=== PATIENT | male | born 1975 | race Caucasian/White ===

== ENCOUNTER → 2016-03-28 | Outpatient (CLI) | payer MEDICARE ==
[~2016-03-28] MED LIST: /DULO30CA; AMIT10TA2; FLEXERIL PO; LIDO5DIS EX; NUCYNTA; RELPAX; SOMA350T; SOMA350T OR; SOMA350T PO; TIZA4TAB; TRAM50TA2 OR; VICODIN; VOLT1GEL2 TD; [UNRECOGNIZED DRUG - CODE] TD
--- NOTE | 2016-03-31 00:44 | ECWPNPC ---
PATIENT NAME: KATHRIN DELGADO : 1975 GENDER: MALE VISIT DATE: 03/28/2016 DISCHARGE DATE: 03/28/16 0939 VISIT LOCKED DATE TIME: PHYSICIAN: MARTY BLAND RESOURCE: MARTY BLAND REASON FOR APPOINTMENT 1. LBP HISTORY OF PRESENT ILLNESS HISTORY OF PRESENT ILLNESS: PAIN THE PATIENT DESCRIBES THE PAIN... FALL RISK SCREENING: SCREENING :NO FALLS IN THE PAST YEAR TODAY'S VISIT: NOTES: RATES PAIN TODAY 3-4/10 DESCRIBES THE PAIN CONSTANT, ACHING SORE. IS HAVING INCREASED NECK PAIN WITH RADIATION TO ARMS. IS WAKING UP IN THE MORNING WITH NUMBNESS IN ARMS. HAS HAPPENED 3 TIMES IN LAST MONTH. PERSISTANT TINGLING NOTED IN LEFT FOOT. BALANCE IS FAIRLY GOOD. TRAMADOL IS VERY HELPFUL I MANAGING NEURVE PAIN.. CURRENT MEDICATIONS TAKING LEVOTHYROXINE SODIUM 25 MCG TABLET 1 TABLET ORALLY ONCE A DAY TAKING TRAMADOL HCL 50 MG TABLET 1 TABLET ORALLY EVERY 6 HRS PRN PAIN MDD=4 MEDICATION LIST REVIEWED AND RECONCILED WITH THE PATIENT PAST MEDICAL HISTORY HYPOTHYROIDISM,DISC DISEASE LOW BACK ALLERGIES CODEINE PHOSPHATE (FOR ALLERGIES USE ONLY): NAUSEA/VOMITING NEURONTIN: CHEST PAIN SOCIAL HISTORY GENERAL: TOBACCO USE ARE YOU A:CURRENT SMOKER HOW MANY CIGARETTES A DAY DO YOU SMOKE?11-20 HOW SOON AFTER YOU WAKE UP DO YOU SMOKE YOUR FIRST CIGARETTE?6-30 MIN HOW OFTEN DO YOU SMOKE CIGARETTES?EVERY DAY PATIENT COUNSELED ON THE DANGERS OF TOBACCO USE AND URGED TO QUIT: COUNCELLED ON THE IMPORTANCE OF QUITTING ARE YOU INTERESTED IN QUITTING?NOT READY TO QUIT LEARNING BARRIERS / SPECIAL NEEDS ORIENTED TO PLAN OF CARE: PATIENT, PAIN MANAGEMENT PATIENT, ORIENTED TO PLAN OF CARE: PATIENT, PAIN MANAGEMENT PATIENT. NEW PATIENT PAIN DIARY TODAY'S VISITNOTES FROM 0-10, WHAT LEVEL IS YOUR PAIN TODAY?0 PAIN CLINIC PFS, CLERGY, PUBLIC HEALTH REFERRALS PFS REFERRAL NEEDED?NO CLERGY REFERRAL NEEDED?NO PUBLIC HEALTH REFERRAL NEEDED?NO WAS THE PROVIDER NOTIFIED OF ANY PERTINENT INFO?NO PFS REFERRAL NEEDED?NO CLERGY REFERRAL NEEDED?NO PUBLIC HEALTH REFERRAL NEEDED?NO WAS THE PROVIDER NOTIFIED OF ANY PERTINENT INFO?NO REVIEW OF SYSTEMS CONSTITUTIONAL: ANY CHANGE IN YOUR MEDICAL CONDITION? NO . CHILLS NO . FEVER NO . INFECTION: DO YOU HAVE NEW INFECTIONS? NO . DO YOU HAVE HISTORY OF MRSA? NO . MUSCULOSKELETAL: ANY NEW PATTERNS OF PAIN OR NUMBNESS? YES PAIN IN NECK AND MORE NUMBNESS IN ARMS . GASTROENTEROLOGY: ANY NEW CHANGE IN BOWEL CONTROL? NO OCCASIONAL CONSTIPATION SECONDARY TO MEDS . GENITOURINARY: ANY NEW CHANGE IN BLADDER CONTROL? NO . IS THERE A CHANCE YOU COULD BE ? NO . HEMATOLOGY/LYMPH: DO YOU TAKE ANY BLOOD THINNERS? (FOR EXAMPLE- COUMADIN, PLAVIX, AGGRENOX, PLATEL, PRADAXA, OR XARELTO) NO . WHEN WAS YOUR LAST DOSE? DATE: TIME: . NEUROLOGY: HAVE YOU FALLEN IN THE PAST 6 MONTHS? NO . ANY NEW EXTREMITY NUMBNESS OR WEAKNESS? NO . CARDIOLOGY: DO YOU HAVE A PACEMAKER OR DEFIBRILLATOR? NO . RESPIRATORY: HAVE YOU BEEN SICK IN THE PAST WEEK? NO . FEVER NO . FLU LIKE SYMPTOMS? NO . COUGH NO . INTEGUMENTARY: DO YOU HAVE ANY RASHES OR OPEN SORES? NO . ALLERGIC/IMMUNO: ARE YOU ALLERGIC TO SHELLFISH OR IV DYE? NO . ANY NEW ALLERGIES? NO . PSYCHIATRIC: DO YOU HAVE THOUGHTS OF HURTING YOURSELF OR SOMEONE ELSE? NO . ARE YOU ABUSED, NEGLECTED, OR IN AN UNSAFE ENVIRONMENT? NO . ENDOCRINOLOGY: ARE YOU DIABETIC? NO . OTHER: DO YOU NEED ANY PRESCRIPTIONS? NO . IF YES, PLEASE LIST: ____ . ANY NEW PROBLEMS WITH YOUR MEDICATIONS? NO . WHEN DID YOU LAST EAT? ____ . WHEN DID YOU LAST DRINK? ____ . WHAT DID YOU LAST DRINK? ____ . NAME OF PERSON DRIVING YOU HOME? ____ . DO YOU HAVE ANY OTHER QUESTIONS OR CONCERNS NO . REVIEWED BY: PROVIDER: MARTY ALBA . VITAL SIGNS WT 184.2 LBS, HT 68 IN, BMI 28.00 INDEX, BP 118/65 MM HG, HR 64 /MIN, RR 16 /MIN, TEMP 96.0 F, OXYGEN SAT % 98%, REVIEWED BY: AD. EXAMINATION GENERAL EXAMINATION: PSYCHALERT , ORIENTED X 3 , APPROPRIATE MOOD AND AFFECT . LUNGS:CLEAR TO AUSCULTATION BILATERALLY. HEART:HEART RATE REGULAR. MUSCULOSKELETAL:MUSCLE STRENGTH TESTING 5/5 BILATERAL IN LOWER EXTREMITIES. SOME STIFFNESS IN FLEXION/EXTENSION IN LEFT ANKLE. TENDERNESS WITH PALPATION OVER LUMBAR SACRAL AXIS, LEFT GREATER THAN RIGHT. ABLE TO RISE TO STANDING POSITION - GAIT WITH SLIGHT LEFT LEG LIMP. AUDIBLE CREPITUS LEFT SHOULDER WITH ROM. , TRIGGER POINTS:, ELICITED WITH PALPATION OVER CERVICAL SPINOUS PROCESSES AND ACROSS THE TRAPEZIUS MUSCLES BILATERALLY. RESTRICTION OF ROM IS NOTED. . ASSESSMENTS LUMBAR POST-LAMINECTOMY SYNDROME - M96.1 (PRIMARY) CERVICAL RADICULOPATHY - M54.12 LUMBAR RADICULOPATHY - M54.16 TREATMENT LUMBAR POST-LAMINECTOMY SYNDROME NOTES: CONSIDER MRI OD CERVICAL SPINE. CONTINUE CURRENT MEDS. USE ICY HOT/BENGAY TO NECK MUSCLES., # 226 TOBACCO USE SCREENING/INTERVENTION: PATIENT CURRENTLY USED TOBACCO. WAS OFFERED SMOKING CESSATION FOR GUIDANCE IN QUITTING THROUGH THE [facility] QUITS PROGRAM AND THE [facility] CESSATION PROGRAM. PROCEDURE CODES FA211 ESTABILISHED PATIENT [facility] FACILITY CHARGE G8783 BP SCR PRFRM RCMDD DEFIND SCR INTVL G8730 PAIN ASSESS POS TOOL F/U PLAN DOC 3016F PT SCRND UNHLTHY OH USE 1124F ACP DISCUSS-NO DSCNMKR DOCD 0518F FALL PLAN OF CARE DOCD G8427 DOC MEDS VERIFIED W/PT OR RE G8420 BMI<30 AND >=22 CALC & DOCU 4004F PT TOBACCO SCREEN RCVD TLK DISPOSITION & COMMUNICATION FOLLOW UP 3 MONTHS ELECTRONICALLY SIGNED BY MARVA ARIZMENDI ON 03/30/2016 AT 12:54 PM EST DISCLAIMER : THIS IS A VISIT SUMMARY EXTRACTED FROM THE [employer] CHART. IT IS NOT A COPY OF THE [employer] PROGRESS NOTE. MTDD
== END ==
LOC: M PAIN 09:00
PROVIDERS: ATTEND Nurse Practitioner Family
DX: Z09 Encounter for follow-up examination after completed treatment for conditions other than malignant neoplasm (principal); G89.29 Other chronic pain; M96.1 Postlaminectomy syndrome, not elsewhere classified; M54.12 Radiculopathy, cervical region; M54.16 Radiculopathy, lumbar region; E03.9 Hypothyroidism, unspecified; F17.210 Nicotine dependence, cigarettes, uncomplicated; Z88.6 Allergy status to analgesic agent; Z88.8 Allergy status to other drugs, medicaments and biological substances; Z79.891 Long term (current) use of opiate analgesic; Z79.899 Other long term (current) drug therapy

== ENCOUNTER → 2016-06-26 | Outpatient (CLI) | payer MEDICARE ==
--- NOTE | 2016-06-30 01:13 | ECWPNPC ---
PATIENT NAME: KATHRNI DELGADO : 1975 GENDER: MALE VISIT DATE: 06/26/2016 DISCHARGE DATE: 06/26/16 0916 VISIT LOCKED DATE TIME: PHYSICIAN: MARTY BLAND RESOURCE: MARTY BLAND REASON FOR APPOINTMENT 1. LBP HISTORY OF PRESENT ILLNESS HISTORY OF PRESENT ILLNESS: PAIN THE PATIENT DESCRIBES THE PAIN... FALL RISK SCREENING: SCREENING :NO FALLS IN THE PAST YEAR TODAY'S VISIT: NOTES: RATES PAIN TODAY 3/10. NOTES PAIN IS CONSTANT, ACHING, AND SORE. HAD REENT ISSUE WITH HEADACHE AND WAS FOUND TO BE SIGNIFICANTLY HYPOTHYROID DESPITE TAKING HIS REPLACEMENT MEDS REGULARLY. HAS HAD NO FALLS.LEFT KNEE AND LEG DOING WELL WIH OCCASIONAL DISCOMFORT IN FOOT.. CURRENT MEDICATIONS TAKING LEVOTHYROXINE SODIUM 125 MCG TABLET 1 TABLET ORALLY ONCE A DAY TAKING TRAMADOL HCL 50 MG TABLET 1 TABLET ORALLY EVERY 6 HRS PRN PAIN MDD=4 MEDICATION LIST REVIEWED AND RECONCILED WITH THE PATIENT PAST MEDICAL HISTORY HYPOTHYROIDISM,DISC DISEASE LOW BACK ALLERGIES CODEINE PHOSPHATE (FOR ALLERGIES USE ONLY): NAUSEA/VOMITING NEURONTIN: CHEST PAIN SOCIAL HISTORY GENERAL: TOBACCO USE ARE YOU A:CURRENT SMOKER HOW MANY CIGARETTES A DAY DO YOU SMOKE?11-20 HOW SOON AFTER YOU WAKE UP DO YOU SMOKE YOUR FIRST CIGARETTE?6-30 MIN HOW OFTEN DO YOU SMOKE CIGARETTES?EVERY DAY PATIENT COUNSELED ON THE DANGERS OF TOBACCO USE AND URGED TO QUIT:06/26/2016 COUNCELLED ON THE IMPORTANCE OF QUITTING ARE YOU INTERESTED IN QUITTING?THINKING ABOUT QUITTING CUTTING DOWN, SOMEDAYS ARE BETTER THAN OTHERS PREVIOUS QUIT ATTEMPTS?YES, WITHIN THE LAST 6 MONTHS. COUNSELED THE PATIENT ON SMOKING CESSATION, EDUCATION [id number]/22/2017 LEARNING BARRIERS / SPECIAL NEEDS ORIENTED TO PLAN OF CARE: PATIENT, PAIN MANAGEMENT PATIENT, ORIENTED TO PLAN OF CARE: PATIENT, PAIN MANAGEMENT PATIENT. NEW PATIENT PAIN DIARY TODAY'S VISITNOTES FROM 0-10, WHAT LEVEL IS YOUR PAIN TODAY?0 PAIN CLINIC PFS, CLERGY, PUBLIC HEALTH REFERRALS PFS REFERRAL NEEDED?NO CLERGY REFERRAL NEEDED?NO PUBLIC HEALTH REFERRAL NEEDED?NO WAS THE PROVIDER NOTIFIED OF ANY PERTINENT INFO?NO PFS REFERRAL NEEDED?NO CLERGY REFERRAL NEEDED?NO PUBLIC HEALTH REFERRAL NEEDED?NO WAS THE PROVIDER NOTIFIED OF ANY PERTINENT INFO?NO REVIEW OF SYSTEMS CONSTITUTIONAL: ANY CHANGE IN YOUR MEDICAL CONDITION? NO . CHILLS NO . FEVER NO . INFECTION: DO YOU HAVE NEW INFECTIONS? NO . DO YOU HAVE HISTORY OF MRSA? NO . MUSCULOSKELETAL: ANY NEW PATTERNS OF PAIN OR NUMBNESS? NO . GASTROENTEROLOGY: ANY NEW CHANGE IN BOWEL CONTROL? NO . GENITOURINARY: ANY NEW CHANGE IN BLADDER CONTROL? NO . IS THERE A CHANCE YOU COULD BE ? NO . HEMATOLOGY/LYMPH: DO YOU TAKE ANY BLOOD THINNERS? (FOR EXAMPLE- COUMADIN, PLAVIX, AGGRENOX, PLATEL, PRADAXA, OR XARELTO) NO . WHEN WAS YOUR LAST DOSE? DATE: TIME: . NEUROLOGY: HAVE YOU FALLEN IN THE PAST 6 MONTHS? NO . ANY NEW EXTREMITY NUMBNESS OR WEAKNESS? NO . CARDIOLOGY: DO YOU HAVE A PACEMAKER OR DEFIBRILLATOR? NO . RESPIRATORY: HAVE YOU BEEN SICK IN THE PAST WEEK? NO . FEVER NO . FLU LIKE SYMPTOMS? NO . DO YOU USE ANY TYPE OF TOBACCO (SMOKE, SMOKELESS, CHEW)? YES - TO START MED FOR SMOKING CESSATION . COUGH NO . INTEGUMENTARY: DO YOU HAVE ANY RASHES OR OPEN SORES? NO . ALLERGIC/IMMUNO: ARE YOU ALLERGIC TO SHELLFISH OR IV DYE? NO . ANY NEW ALLERGIES? NO . PSYCHIATRIC: DO YOU HAVE THOUGHTS OF HURTING YOURSELF OR SOMEONE ELSE? NO . ARE YOU ABUSED, NEGLECTED, OR IN AN UNSAFE ENVIRONMENT? NO . ENDOCRINOLOGY: ARE YOU DIABETIC? NO . OTHER: DO YOU NEED ANY PRESCRIPTIONS? NO . IF YES, PLEASE LIST: ____ . ANY NEW PROBLEMS WITH YOUR MEDICATIONS? NO . WHEN DID YOU LAST EAT? ____ . WHEN DID YOU LAST DRINK? ____ . WHAT DID YOU LAST DRINK? ____ . NAME OF PERSON DRIVING YOU HOME? ____ . DO YOU HAVE ANY OTHER QUESTIONS OR CONCERNS NO . REVIEWED BY: PROVIDER: MARTY BLAND BEARINGIZER . VITAL SIGNS WT 184.2 LBS, HT 68 IN, BMI 28.00 INDEX, BP 126/65 MM HG, HR 64 /MIN, RR 16 /MIN, TEMP 98.7 F, OXYGEN SAT % 97, NA INITIALS MP, REVIEWED BY: AD. EXAMINATION GENERAL EXAMINATION: PSYCHALERT , ORIENTED X 3 , APPROPRIATE MOOD AND AFFECT . LUNGS:CLEAR TO AUSCULTATION BILATERALLY. HEART:HEART RATE REGULAR. MUSCULOSKELETAL:MUSCLE STRENGTH TESTING 5/5 BILATERAL IN LOWER EXTREMITIES. MINIMAL STIFFNESS IN FLEXION/EXTENSION IN LEFT ANKLE. MINIMAL TENDERNESS WITH PALPATION OVER LUMBAR SACRAL AXIS, LEFT GREATER THAN RIGHT. ABLE TO RISE TO STANDING POSITION - POSTURE UPRIGHT, GAIT NON ANTALGIC.TRIGGER POINTS:, ELICITED WITH PALPATION OVER CERVICAL SPINOUS PROCESSES AND ACROSS THE TRAPEZIUS MUSCLES BILATERALLY. RESTRICTION OF ROM IS NOTED. . ASSESSMENTS LUMBAR POST-LAMINECTOMY SYNDROME - M96.1 (PRIMARY) CERVICAL RADICULOPATHY - M54.12 LUMBAR RADICULOPATHY - M54.16 TREATMENT LUMBAR POST-LAMINECTOMY SYNDROME NOTES: CONTINUE EXERCISES, WALKING AND STRETCHES. CONTINE CURRENT MEDS. CALL WHEN MEDS DUE. PROCEDURE CODES FA211 ESTABILISHED PATIENT [facility] FACILITY CHARGE G8730 PAIN ASSESS POS TOOL F/U PLAN DOC G8427 DOC MEDS VERIFIED W/PT OR RE DISPOSITION & COMMUNICATION FOLLOW UP 3 MONTHS ELECTRONICALLY SIGNED BY MARVA ARIZMENDI ON 06/26/2016 AT 02:14 PM EDT DISCLAIMER : THIS IS A VISIT SUMMARY EXTRACTED FROM THE [employer] CHART. IT IS NOT A COPY OF THE [employer] PROGRESS NOTE. BRIDGER
== END ==
LOC: M PAIN 08:40
PROVIDERS: ATTEND Nurse Practitioner Family
DX: M96.1 Postlaminectomy syndrome, not elsewhere classified (principal); M54.12 Radiculopathy, cervical region; M54.16 Radiculopathy, lumbar region; Z79.891 Long term (current) use of opiate analgesic; Z79.899 Other long term (current) drug therapy; E03.9 Hypothyroidism, unspecified; F17.210 Nicotine dependence, cigarettes, uncomplicated

== ENCOUNTER → 2016-10-04 | Outpatient (CLI) | payer MEDICARE ==
--- NOTE | 2016-10-05 23:29 | ECWPNPC ---
PATIENT NAME: KATHRIN DELGADO : 1975 GENDER: MALE VISIT DATE: 10/04/2016 DISCHARGE DATE: 10/04/16 1037 VISIT LOCKED DATE TIME: PHYSICIAN: MARTY BLAND RESOURCE: MARTY BLAND REASON FOR APPOINTMENT 1. LBP HISTORY OF PRESENT ILLNESS HISTORY OF PRESENT ILLNESS: PAIN THE PATIENT DESCRIBES THE PAIN... FALL RISK SCREENING: SCREENING :NO FALLS IN THE PAST YEAR TODAY'S VISIT: NOTES: RATES PAIN LEVEL TODAY 3-4/10. DESCRIBES PAINA S CNSTANT, ACHING AND SORE.NOTES PAINA S BEING AT CENTER LOW BACK, LOW MID BACK AND AT BASE OF NECK. HAD ONSET OF NEW PAIN AT MID BACK AT END OF JULY. NOTES THINGS ARE SLOWLY IMPROVING. NOTES HE HAS LIMITED MOBILITY. WAS IN ER LAST WEEK WITH SEVERE HEADACHE - HAD IV FLUIDS AND WAS FELT TO BE DEHYDRATED. CURRENT MEDICATIONS TAKING LEVOTHYROXINE SODIUM 125 MCG TABLET 1 TABLET ORALLY ONCE A DAY TAKING TRAMADOL HCL 50 MG TABLET 1 TABLET ORALLY EVERY 6 HRS PRN PAIN MDD=4 MEDICATION LIST REVIEWED AND RECONCILED WITH THE PATIENT PAST MEDICAL HISTORY HYPOTHYROIDISM,DISC DISEASE LOW BACK ALLERGIES CODEINE PHOSPHATE (FOR ALLERGIES USE ONLY): NAUSEA/VOMITING NEURONTIN: CHEST PAIN SURGICAL HISTORY LUMBAR DISCECTOMY 2004 LUMBAR FUSION 2011 SOCIAL HISTORY GENERAL: TOBACCO USE ARE YOU A:CURRENT SMOKER HOW MANY CIGARETTES A DAY DO YOU SMOKE?11-20 HOW SOON AFTER YOU WAKE UP DO YOU SMOKE YOUR FIRST CIGARETTE?6-30 MIN HOW OFTEN DO YOU SMOKE CIGARETTES?EVERY DAY PATIENT COUNSELED ON THE DANGERS OF TOBACCO USE AND URGED TO QUIT:06/26/2016 COUNCELLED ON THE IMPORTANCE OF QUITTING ARE YOU INTERESTED IN QUITTING?THINKING ABOUT QUITTING CUTTING DOWN, SOMEDAYS ARE BETTER THAN OTHERS PREVIOUS QUIT ATTEMPTS?YES, WITHIN THE LAST 6 MONTHS. COUNSELED THE PATIENT ON SMOKING CESSATION, EDUCATION [id number]/22/2017 LEARNING BARRIERS / SPECIAL NEEDS ORIENTED TO PLAN OF CARE: PATIENT, PAIN MANAGEMENT PATIENT, ORIENTED TO PLAN OF CARE: PATIENT, PAIN MANAGEMENT PATIENT. NEW PATIENT PAIN DIARY TODAY'S VISITNOTES FROM 0-10, WHAT LEVEL IS YOUR PAIN TODAY?0 PAIN CLINIC PFS, CLERGY, PUBLIC HEALTH REFERRALS PFS REFERRAL NEEDED?NO CLERGY REFERRAL NEEDED?NO PUBLIC HEALTH REFERRAL NEEDED?NO WAS THE PROVIDER NOTIFIED OF ANY PERTINENT INFO?NO PFS REFERRAL NEEDED?NO CLERGY REFERRAL NEEDED?NO PUBLIC HEALTH REFERRAL NEEDED?NO WAS THE PROVIDER NOTIFIED OF ANY PERTINENT INFO?NO HOSPITALIZATION/MAJOR DIAGNOSTIC PROCEDURE SURG RELATED REVIEW OF SYSTEMS REVIEWED BY: PROVIDER: MARTY ALBA . CONSTITUTIONAL: ANY CHANGE IN YOUR MEDICAL CONDITION? YES, NEW PAIN PATTERN TO LEFT NECK AND THORACIC PAIN . CHILLS NO . FEVER NO . INFECTION: DO YOU HAVE NEW INFECTIONS? NO . DO YOU HAVE HISTORY OF MRSA? NO . MUSCULOSKELETAL: ANY NEW PATTERNS OF PAIN OR NUMBNESS? YES, LEFT NECK PAIN, THORACIC PAIN AND LUMBAR PAIN . GASTROENTEROLOGY: ANY NEW CHANGE IN BOWEL CONTROL? NO . GENITOURINARY: ANY NEW CHANGE IN BLADDER CONTROL? NO . IS THERE A CHANCE YOU COULD BE ? NO . HEMATOLOGY/LYMPH: DO YOU TAKE ANY BLOOD THINNERS? (FOR EXAMPLE- COUMADIN, PLAVIX, AGGRENOX, PLATEL, PRADAXA, OR XARELTO) NO . WHEN WAS YOUR LAST DOSE? DATE: TIME: . NEUROLOGY: HAVE YOU FALLEN IN THE PAST 6 MONTHS? NO . ANY NEW EXTREMITY NUMBNESS OR WEAKNESS? NO . CARDIOLOGY: DO YOU HAVE A PACEMAKER OR DEFIBRILLATOR? NO . RESPIRATORY: HAVE YOU BEEN SICK IN THE PAST WEEK? NO . FEVER NO . FLU LIKE SYMPTOMS? NO . COUGH NO . INTEGUMENTARY: DO YOU HAVE ANY RASHES OR OPEN SORES? NO . ALLERGIC/IMMUNO: ARE YOU ALLERGIC TO SHELLFISH OR IV DYE? NO . ANY NEW ALLERGIES? NO . PSYCHIATRIC: DO YOU HAVE THOUGHTS OF HURTING YOURSELF OR SOMEONE ELSE? NO . ARE YOU ABUSED, NEGLECTED, OR IN AN UNSAFE ENVIRONMENT? NO . ENDOCRINOLOGY: ARE YOU DIABETIC? NO . OTHER: DO YOU NEED ANY PRESCRIPTIONS? YES, TRAMADOL . IF YES, PLEASE LIST: ____ . ANY NEW PROBLEMS WITH YOUR MEDICATIONS? NO . WHEN DID YOU LAST EAT? ____ . WHEN DID YOU LAST DRINK? ____ . WHAT DID YOU LAST DRINK? ____ . NAME OF PERSON DRIVING YOU HOME? ____ . DO YOU HAVE ANY OTHER QUESTIONS OR CONCERNS NO . VITAL SIGNS WT 187 LBS, HT 68 IN, BMI 28.43 INDEX, BP 123/75 MM HG, HR 72 /MIN, RR 16 /MIN, TEMP 97.1 F, OXYGEN SAT % 98, REVIEWED BY: EM. EXAMINATION GENERAL EXAMINATION: PSYCHALERT , ORIENTED X 3 , APPROPRIATE MOOD AND AFFECT , APPEARS UNCOMFOFRTABLE. LUNGS:CLEAR TO AUSCULTATION BILATERALLY. HEART:HEART RATE REGULAR. MUSCULOSKELETAL:LARGE TRIGGER POINTS NOTED OVER LEFT UPPER LUMBAR AND THORACIC PARAVERTEBRAL MUSCULATURE. TENDER OVER LEFT CERVICAL THORACIC JUNCTION . DECREASED ROM WITH NECK FLEXION, EXTENSION AND ROTATION. RISES EASILY TO STANDING POSITION. POSTURE UPRIGHT. MILD TENDERNESS OVER LUMBAR SPINOUS PRICESSES AND AT LEFT SIJ. NO LOWER EXTREMITY WEAKNESS.. ASSESSMENTS LUMBAR POST-LAMINECTOMY SYNDROME - M96.1 (PRIMARY) CERVICAL RADICULOPATHY - M54.12 LUMBAR RADICULOPATHY - M54.16 MYALGIA - M79.1 TREATMENT LUMBAR POST-LAMINECTOMY SYNDROME START TIZANIDINE HCL TABLET, 4 MG, 1/2 -1 TABLET NEEDED, ORALLY, THREE TIMES A DAY PRN SPASM, 30 DAY(S), 90, REFILLS 1 NOTES: CONTINUE TRAMADOL NEEDED. RESTART WALKING PROGRAM SLOWLY. CLINICAL NOTES: ISTOP REGISTRY REVIEWED AND DEMNOSTRATES COMPLLIANCE. PROCEDURE CODES FA211 ESTABILISHED PATIENT [facility] FACILITY CHARGE G8730 PAIN ASSESS POS TOOL F/U PLAN DOC G8427 DOC MEDS VERIFIED W/PT OR RE DISPOSITION & COMMUNICATION FOLLOW UP 2 MONTHS (REASON: BACK PAIN) ELECTRONICALLY SIGNED BY MARVA ARIZMENDI ON 10/05/2016 AT 08:48 AM EDT DISCLAIMER : THIS IS A VISIT SUMMARY EXTRACTED FROM THE [employer] CHART. IT IS NOT A COPY OF THE [employer] PROGRESS NOTE. BRIDGER
== END ==
LOC: M PAIN 10:00
PROVIDERS: ATTEND Nurse Practitioner Family
DX: M96.1 Postlaminectomy syndrome, not elsewhere classified (principal); M54.12 Radiculopathy, cervical region; M54.16 Radiculopathy, lumbar region; M79.1 Myalgia; G89.29 Other chronic pain; E03.9 Hypothyroidism, unspecified; Z79.891 Long term (current) use of opiate analgesic; Z79.899 Other long term (current) drug therapy; Z88.5 Allergy status to narcotic agent; Z88.8 Allergy status to other drugs, medicaments and biological substances

== ENCOUNTER → 2016-12-04 | Outpatient (CLI) | payer MEDICARE ==
--- NOTE | 2016-12-05 01:42 | ECWPNPC ---
PATIENT NAME: KATHRIN DELGADO : 1975 GENDER: MALE VISIT DATE: 12/04/2016 DISCHARGE DATE: 12/04/16 0940 VISIT LOCKED DATE TIME: PHYSICIAN: MARTY BLAND RESOURCE: MARTY BLAND REASON FOR APPOINTMENT 1. BACK PAIN HISTORY OF PRESENT ILLNESS HISTORY OF PRESENT ILLNESS: PAIN THE PATIENT DESCRIBES THE PAIN... FALL RISK SCREENING: SCREENING :NO FALLS IN THE PAST YEAR TODAY'S VISIT: NOTES: RATES PAIN TODAY -08/14. DESCRIBES PAIN CONSTANT, ACHING AND BURNING AND SORE. PAIN CENTERED IN USUAL LOW BACK AND IN A NEW PLACE AT THE BASE OF THE NECK AND OVER LEFT SHOULDER. NECK FEELS LIKE A DEEP BURN AND IS HAVING TROUBLE HOLDING HEAD UP. IS HAVING DIFFICULTY RAISING LEFT ARM. SLEEP HAS BEEN POOR. HAS NOT BEEN ABLE TO FUNCTION ABOUT HOME WITH THIS INCREASE IN PAIN. . CURRENT MEDICATIONS TAKING LEVOTHYROXINE SODIUM 125 MCG TABLET 1 TABLET ORALLY ONCE A DAY TAKING TRAMADOL HCL 50 MG TABLET 1 TABLET ORALLY EVERY 6 HRS PRN PAIN MDD=4 DISCONTINUED TIZANIDINE HCL 4 MG TABLET 1/2 -1 TABLET NEEDED ORALLY THREE TIMES A DAY PRN SPASM MEDICATION LIST REVIEWED AND RECONCILED WITH THE PATIENT PAST MEDICAL HISTORY HYPOTHYROIDISM,DISC DISEASE LOW BACK ALLERGIES CODEINE PHOSPHATE (FOR ALLERGIES USE ONLY): NAUSEA/VOMITING NEURONTIN: CHEST PAIN SOCIAL HISTORY GENERAL: TOBACCO USE ARE YOU A:CURRENT SMOKER HOW MANY CIGARETTES A DAY DO YOU SMOKE?11-20 HOW SOON AFTER YOU WAKE UP DO YOU SMOKE YOUR FIRST CIGARETTE?6-30 MIN HOW OFTEN DO YOU SMOKE CIGARETTES?EVERY DAY PATIENT COUNSELED ON THE DANGERS OF TOBACCO USE AND URGED TO QUIT:06/26/2016 COUNCELLED ON THE IMPORTANCE OF QUITTING ARE YOU INTERESTED IN QUITTING?THINKING ABOUT QUITTING CUTTING DOWN, SOMEDAYS ARE BETTER THAN OTHERS PREVIOUS QUIT ATTEMPTS?YES, WITHIN THE LAST 6 MONTHS. COUNSELED THE PATIENT ON SMOKING CESSATION, EDUCATION [id number]/22/2017 LEARNING BARRIERS / SPECIAL NEEDS ORIENTED TO PLAN OF CARE: PATIENT, PAIN MANAGEMENT PATIENT, ORIENTED TO PLAN OF CARE: PATIENT, PAIN MANAGEMENT PATIENT. NEW PATIENT PAIN DIARY TODAY'S VISIT NOTES, FROM 0-10, WHAT LEVEL IS YOUR PAIN TODAY? 0. PAIN CLINIC PFS, CLERGY, PUBLIC HEALTH REFERRALS HAS THE PATIENT BEEN EDUCATED REGARDING HIS/HER PLAN OF CARE?YES HAS THE PATIENT BEEN EDUCATED REGARDING PAIN, THE RISK FOR PAIN, THE IMPORTANCE OF EFFECTIVE PAIN MANAGEMENT, AND THE PAIN ASSESSMENT PROCESS?YES REVIEW OF SYSTEMS REVIEWED BY: PROVIDER: MARTY ALBA . CONSTITUTIONAL: ANY CHANGE IN YOUR MEDICAL CONDITION? NO . CHILLS NO . FEVER NO . INFECTION: DO YOU HAVE NEW INFECTIONS? NO . DO YOU HAVE HISTORY OF MRSA? NO . MUSCULOSKELETAL: ANY NEW PATTERNS OF PAIN OR NUMBNESS? YES, PAIN AT BASE OF NECK AND GOES INTO THE LEFT SHOULDER. SOMETIMES SO BAD CAN'T HOLD HIS HEAD UP. . GASTROENTEROLOGY: ANY NEW CHANGE IN BOWEL CONTROL? NO . GENITOURINARY: ANY NEW CHANGE IN BLADDER CONTROL? NO . IS THERE A CHANCE YOU COULD BE ? NO . HEMATOLOGY/LYMPH: DO YOU TAKE ANY BLOOD THINNERS? (FOR EXAMPLE- COUMADIN, PLAVIX, AGGRENOX, PLATEL, PRADAXA, OR XARELTO) NO . WHEN WAS YOUR LAST DOSE? DATE: TIME: . NEUROLOGY: HAVE YOU FALLEN IN THE PAST 6 MONTHS? NO . ANY NEW EXTREMITY NUMBNESS OR WEAKNESS? NO . CARDIOLOGY: DO YOU HAVE A PACEMAKER OR DEFIBRILLATOR? NO . RESPIRATORY: HAVE YOU BEEN SICK IN THE PAST WEEK? NO . FEVER NO . FLU LIKE SYMPTOMS? NO . COUGH NO . INTEGUMENTARY: DO YOU HAVE ANY RASHES OR OPEN SORES? NO . ALLERGIC/IMMUNO: ARE YOU ALLERGIC TO SHELLFISH OR IV DYE? NO . ANY NEW ALLERGIES? NO . PSYCHIATRIC: DO YOU HAVE THOUGHTS OF HURTING YOURSELF OR SOMEONE ELSE? NO . ARE YOU ABUSED, NEGLECTED, OR IN AN UNSAFE ENVIRONMENT? NO . ENDOCRINOLOGY: ARE YOU DIABETIC? NO . OTHER: DO YOU NEED ANY PRESCRIPTIONS? YES, NEED NEW PAIN MED! . IF YES, PLEASE LIST: ____ . ANY NEW PROBLEMS WITH YOUR MEDICATIONS? YES, TIZANIDINE DID NOTHING . WHEN DID YOU LAST EAT? ____ . WHEN DID YOU LAST DRINK? ____ . WHAT DID YOU LAST DRINK? ____ . NAME OF PERSON DRIVING YOU HOME? ____ . DO YOU HAVE ANY OTHER QUESTIONS OR CONCERNS YES, NECK- REAL BAD, MIDDLE BACK- RUFF, LOW BACK- NOT BAD . VITAL SIGNS WT 190.0 LBS, HT 68 IN, BMI 28.89 INDEX, BP 120/71 MM HG, HR 60 /MIN, RR 16 /MIN, TEMP 97.3 F, OXYGEN SAT % 98%, NA INITIALS TL 0855, REVIEWED BY: BELIA. EXAMINATION GENERAL EXAMINATION: PSYCHAPEARS UNCOMFORTABLE. , ORIENTED X 3 , ALERT , APPROPRIATE MOOD AND AFFECT . LUNGS:CLEAR TO AUSCULTATION BILATERALLY. HEART:HEART RATE REGULAR. MUSCULOSKELETAL:MUSCLE STRENGTH TESTING 5/5 BILATERAL LOWER EXTREMITIES, 5/5 RIGHT UPPER EXTREMITY AND 4+/5 LEFT UPPER EXTREMITY. INCREASED MUSCLE TONE NOTES OVERALL. MARKED INCREASE IN PAIN AT BASE OF NECK AND LEFT AC JOINT WITH ELEVATION OF LEFT ARM TO OR ABOVE 90 DEGREES. AUDIBLE AND PALPABLE CREPITUS WITH INTERNAL/EXTERNAL ROTATION LEFT AC JOINT ONLY. VERY POOR RANGE OF MOTION WITH NECK, PARTICULARLY WITH ROTATION. . NEUROLOGIC EXAM:CN'S II-XII GROSSLY INTACT. PATCHY DYSESTHESIA OVER LEFT SHOULDER AND UPPER ARM. ASSESSMENTS LUMBAR POST-LAMINECTOMY SYNDROME - M96.1 (PRIMARY) CERVICAL RADICULOPATHY - M54.12 MYALGIA - M79.1 TREATMENT LUMBAR POST-LAMINECTOMY SYNDROME START PERCOCET TABLET, 10-325 MG, 1 TABLET NEEDED, ORALLY, TAKE 1 PO Q 6 HOURS PERN SEVERE PAIN MDD=4, 30 DAY(S), 20, REFILLS 0 START PREDNISONE TABLET, 10 MG, 1 TABLET, ORALLY, TAKE 5 TABS DAILY X 2 DAYS, 4 TAB X 2 DAY, 3 TAB X 2 DAY, 2 TABX 2 DAY, 1 TABX 2 DAY, 30 DAY(S), 30, REFILLS 0 START BACLOFEN TABLET, 10 MG, 1 TABLET WITH FOOD OR MILK, ORALLY, THREE TIMES A DAY, 30 DAY(S), 90, REFILLS 1 LIZZETTE SPINE CERVICAL W/AP/FLEX/[id number],SUSAN M 12/04/2016 9:19:42 AM > INCREASED PAIN, RANGE OF MOTION DECREASE SHOULDER [id number],SUSAN M 12/04/2016 9:20:27 AM > AUDIBLE CREPITUS LEFT NOTES: CONTINUE ICE AND HEAT TO NECK AREA. DO GENTLE SHOULDER STRETCHES. CLINICAL NOTES: ISTOP REGISTRY REVIEWED AND DEMNOSTRATES COMPLLIANCE. (REF # [id number]). PROCEDURE CODES FA211 ESTABILISHED PATIENT [facility] CHARGE DISPOSITION & COMMUNICATION FOLLOW UP ONE MONTH (REASON: NECK/BACK PAIN) ELECTRONICALLY SIGNED BY MARVA ARIZMENDI ON 12/04/2016 AT 10:26 AM EDT DISCLAIMER : THIS IS A VISIT SUMMARY EXTRACTED FROM THE [facility] CHART. IT IS NOT A COPY OF THE [employer] PROGRESS NOTE. BRIDGER
== END ==
LOC: M PAIN 09:00
PROVIDERS: ATTEND Nurse Practitioner Family
DX: M96.1 Postlaminectomy syndrome, not elsewhere classified (principal); M54.12 Radiculopathy, cervical region; M79.1 Myalgia; E03.9 Hypothyroidism, unspecified; F17.210 Nicotine dependence, cigarettes, uncomplicated; Z88.5 Allergy status to narcotic agent; Z88.8 Allergy status to other drugs, medicaments and biological substances; Z79.891 Long term (current) use of opiate analgesic; Z79.899 Other long term (current) drug therapy

== ENCOUNTER → 2017-01-01 | Outpatient (CLI) | payer MEDICARE ==
--- NOTE | 2017-01-19 01:36 | ECWPNPC ---
PATIENT NAME: KATHRIN DELGADO : 1975 GENDER: MALE VISIT DATE: 01/01/2017 DISCHARGE DATE: 01/01/17 1123 VISIT LOCKED DATE TIME: PHYSICIAN: MARTY BLAND RESOURCE: MRATY BLAND REASON FOR APPOINTMENT 1. NECK/BACK PAIN HISTORY OF PRESENT ILLNESS HISTORY OF PRESENT ILLNESS: PAIN THE PATIENT DESCRIBES THE PAIN... FALL RISK SCREENING: SCREENING :NO FALLS IN THE PAST YEAR TODAY'S VISIT: NOTES: RATES PAIN TODAY 7-8/10 NOTES WORST PAIN IN NECK WITH RADIATION ACROSS THE SHOULDERS. SAW ER - HAD CT OF SOFT TISSUE - AREA FELT TO FATTY TUMOR/LIPOMA. HAS HAS INTERMITTANT NUMBNESS IN BOTH ARMS AND HANDS. LIMITS MOVEMENT TO LEFT ARM.. CURRENT MEDICATIONS TAKING LEVOTHYROXINE SODIUM 125 MCG TABLET 1 TABLET ORALLY ONCE A DAY TAKING TRAMADOL HCL 50 MG TABLET 1 TABLET ORALLY EVERY 6 HRS PRN PAIN MDD=4 TAKING PERCOCET 10-325 MG TABLET 1 TABLET NEEDED ORALLY TAKE 1 PO Q 6 HOURS PERN SEVERE PAIN MDD=4 NOT-TAKING PREDNISONE 10 MG TABLET 1 TABLET ORALLY TAKE 5 TABS DAILY X 2 DAYS, 4 TAB X 2 DAY, 3 TAB X 2 DAY, 2 TABX 2 DAY, 1 TABX 2 DAY NOT-TAKING BACLOFEN 10 MG TABLET 1 TABLET WITH FOOD OR MILK ORALLY THREE TIMES A DAY MEDICATION LIST REVIEWED AND RECONCILED WITH THE PATIENT PAST MEDICAL HISTORY HYPOTHYROIDISM,DISC DISEASE LOW BACK ALLERGIES CODEINE PHOSPHATE (FOR ALLERGIES USE ONLY): NAUSEA/VOMITING NEURONTIN: CHEST PAIN SOCIAL HISTORY GENERAL: TOBACCO USE ARE YOU A:CURRENT SMOKER HOW MANY CIGARETTES A DAY DO YOU SMOKE?11-20 HOW SOON AFTER YOU WAKE UP DO YOU SMOKE YOUR FIRST CIGARETTE?6-30 MIN HOW OFTEN DO YOU SMOKE CIGARETTES?EVERY DAY PATIENT COUNSELED ON THE DANGERS OF TOBACCO USE AND URGED TO QUIT:06/26/2016 COUNCELLED ON THE IMPORTANCE OF QUITTING ARE YOU INTERESTED IN QUITTING?THINKING ABOUT QUITTING CUTTING DOWN, SOMEDAYS ARE BETTER THAN OTHERS PREVIOUS QUIT ATTEMPTS?YES, WITHIN THE LAST 6 MONTHS. COUNSELED THE PATIENT ON SMOKING CESSATION, EDUCATION [id number]/22/2017 DRUZE [id number] NONE NO CHRISTIAN BELIEFS THAT WOULD IMPACT HEALTH CARE. LEARNING BARRIERS / SPECIAL NEEDS ORIENTED TO PLAN OF CARE: PATIENT, PAIN MANAGEMENT PATIENT, ORIENTED TO PLAN OF CARE: PATIENT, PAIN MANAGEMENT PATIENT. NEW PATIENT PAIN DIARY TODAY'S VISIT NOTES, FROM 0-10, WHAT LEVEL IS YOUR PAIN TODAY? 0. PAIN CLINIC PFS, CLERGY, PUBLIC HEALTH REFERRALS HAS THE PATIENT BEEN EDUCATED REGARDING HIS/HER PLAN OF CARE?YES HAS THE PATIENT BEEN EDUCATED REGARDING PAIN, THE RISK FOR PAIN, THE IMPORTANCE OF EFFECTIVE PAIN MANAGEMENT, AND THE PAIN ASSESSMENT PROCESS?YES ADVANCE DIRECTIVES HEALTH CARE PROXY?YES NAME OF HCP HERBERT / MOTHER IS BACK UP DO YOU HAVE A COPY WITH YOU?NO REVIEW OF SYSTEMS REVIEWED BY: PROVIDER: . CONSTITUTIONAL: ANY CHANGE IN YOUR MEDICAL CONDITION? YES, RIGHT ARM NUMBNESS NOW . CHILLS NO . FEVER NO . INFECTION: DO YOU HAVE NEW INFECTIONS? NO . DO YOU HAVE HISTORY OF MRSA? NO . MUSCULOSKELETAL: ANY NEW PATTERNS OF PAIN OR NUMBNESS? YES, NECK . GASTROENTEROLOGY: ANY NEW CHANGE IN BOWEL CONTROL? YES, VERY CONSTIPATED . GENITOURINARY: ANY NEW CHANGE IN BLADDER CONTROL? NO . IS THERE A CHANCE YOU COULD BE ? NO . HEMATOLOGY/LYMPH: DO YOU TAKE ANY BLOOD THINNERS? (FOR EXAMPLE- COUMADIN, PLAVIX, AGGRENOX, PLATEL, PRADAXA, OR XARELTO) NO . WHEN WAS YOUR LAST DOSE? DATE: TIME: . NEUROLOGY: HAVE YOU FALLEN IN THE PAST 6 MONTHS? NO . ANY NEW EXTREMITY NUMBNESS OR WEAKNESS? NO . CARDIOLOGY: DO YOU HAVE A PACEMAKER OR DEFIBRILLATOR? NO . RESPIRATORY: HAVE YOU BEEN SICK IN THE PAST WEEK? YES . FEVER NO . FLU LIKE SYMPTOMS? NO . COUGH NO . INTEGUMENTARY: DO YOU HAVE ANY RASHES OR OPEN SORES? NO . ALLERGIC/IMMUNO: ARE YOU ALLERGIC TO SHELLFISH OR IV DYE? NO . ANY NEW ALLERGIES? NO . PSYCHIATRIC: DO YOU HAVE THOUGHTS OF HURTING YOURSELF OR SOMEONE ELSE? NO . ARE YOU ABUSED, NEGLECTED, OR IN AN UNSAFE ENVIRONMENT? NO . ENDOCRINOLOGY: ARE YOU DIABETIC? NO . OTHER: DO YOU NEED ANY PRESCRIPTIONS? YES . IF YES, PLEASE LIST: PERCOCET . ANY NEW PROBLEMS WITH YOUR MEDICATIONS? NO . WHEN DID YOU LAST EAT? ____ . WHEN DID YOU LAST DRINK? ____ . WHAT DID YOU LAST DRINK? ____ . NAME OF PERSON DRIVING YOU HOME? ____ . DO YOU HAVE ANY OTHER QUESTIONS OR CONCERNS YES, GETTING BAD "IM IN TROUBLE" . VITAL SIGNS WT 190 LBS, HT 68 IN, BMI 28.89 INDEX, BP 118/81 MM HG, HR 66 /MIN, RR 18 /MIN, TEMP 97.2 F, OXYGEN SAT % 95%, NA INITIALS SC 10:32, REVIEWED BY: NL. EXAMINATION GENERAL EXAMINATION: PSYCHAPEARS UNCOMFORTABLE. , ORIENTED X 3 , ALERT , APPROPRIATE MOOD AND AFFECT . LUNGS:CLEAR TO AUSCULTATION BILATERALLY. HEART:HEART RATE REGULAR. MUSCULOSKELETAL:MUSCLE STRENGTH TESTING 5/5 BILATERAL LOWER EXTREMITIES, 5/5 RIGHT UPPER EXTREMITY AND 4+/5 LEFT UPPER EXTREMITY. INCREASED MUSCLE TONE NOTES OVERALL. MARKED INCREASE IN PAIN AT BASE OF NECK AND LEFT AC JOINT WITH ELEVATION OF LEFT ARM TO OR ABOVE 90 DEGREES. AUDIBLE AND PALPABLE CREPITUS WITH INTERNAL/EXTERNAL ROTATION LEFT AC JOINT ONLY. VERY POOR RANGE OF MOTION WITH NECK, PARTICULARLY WITH ROTATION. . NEUROLOGIC EXAM:CN'S II-XII GROSSLY INTACT. PATCHY DYSESTHESIA OVER LEFT SHOULDER AND UPPER ARM. ASSESSMENTS CERVICAL RADICULOPATHY - M54.12 (PRIMARY) MYALGIA - M79.1 TREATMENT CERVICAL RADICULOPATHY REFILL PERCOCET TABLET, 10-325 MG, 1 TABLET NEEDED, ORALLY, TAKE 1 PO Q 6 HOURS PERN SEVERE PAIN MDD=4, 30 DAY(S), 90, REFILLS 0 START CARISOPRODOL TABLET, 350 MG, 1 TABLET NEEDED, ORALLY, Q 8 HOURS MDD=3, 1 DOSE(S), 3, REFILLS 0 [facility] MRI SPINE, CERVICAL WITHOUT [id number],SUSAN M 01/01/2017 11:04:13 AM > NECK PAIN, LOSS OF RANGE OF MOTION, CERVICAL RADICULOPATHY NOTES: CALL DR HAYDEN BRAVO. SOFT NECK COLLAR NEEDED. GENTLY STRETCH SHOULDER WHEN LYING DOWN WITH NECK SUPPORTED. CLINICAL NOTES: 01/18/17 - REVIEWED MRI, CALLED PT TO CHECK STATUS AND OFF OPTION OF CERVICAL EPIDURAL INJECTION. PROCEDURE CODES FA211 ESTABILISHED PATIENT [facility] FACILITY CHARGE G8730 PAIN ASSESS POS TOOL F/U PLAN DOC G8427 DOC MEDS VERIFIED W/PT OR RE DISPOSITION & COMMUNICATION FOLLOW UP 1 WEEK AFTER MRI COMPLETED (REASON: CHECK AUTH FOR MRI /NECK PAIN) ELECTRONICALLY SIGNED BY MARVA ARIZMENDI ON 01/18/2017 AT 08:54 AM EST DISCLAIMER : THIS IS A VISIT SUMMARY EXTRACTED FROM THE [employer] CHART. IT IS NOT A COPY OF THE [employer] PROGRESS NOTE. BRIDGER
== END ==
LOC: M PAIN 10:00
PROVIDERS: ATTEND Nurse Practitioner Family
DX: M54.12 Radiculopathy, cervical region (principal); M79.1 Myalgia; E03.9 Hypothyroidism, unspecified; E78.5 Hyperlipidemia, unspecified; F17.210 Nicotine dependence, cigarettes, uncomplicated; Z79.82 Long term (current) use of aspirin; Z79.891 Long term (current) use of opiate analgesic; Z79.899 Other long term (current) drug therapy; Z88.1 Allergy status to other antibiotic agents; Z88.8 Allergy status to other drugs, medicaments and biological substances

== ENCOUNTER → 2017-02-12 | Outpatient (CLI) | payer MEDICARE | LOC: M PAIN 08:30 | DX: M50.222 Other cervical disc displacement at C5-C6 level (principal); M54.12 Radiculopathy, cervical region; M79.1 Myalgia; E03.9 Hypothyroidism, unspecified; F17.210 Nicotine dependence, cigarettes, uncomplicated; Z88.5 Allergy status to narcotic agent; Z88.8 Allergy status to other drugs, medicaments and biological substances; Z79.891 Long term (current) use of opiate analgesic; Z79.899 Other long term (current) drug therapy | CPT/HCPCS: G0463 ==

== ENCOUNTER → 2017-04-11 | Outpatient (CLI) | payer MEDICARE | LOC: M PAIN 08:45 | DX: M50.222 Other cervical disc displacement at C5-C6 level (principal); M54.12 Radiculopathy, cervical region; M79.1 Myalgia; E03.9 Hypothyroidism, unspecified; F17.210 Nicotine dependence, cigarettes, uncomplicated; Z79.891 Long term (current) use of opiate analgesic; Z79.899 Other long term (current) drug therapy; Z88.8 Allergy status to other drugs, medicaments and biological substances | CPT/HCPCS: G0463 ==

== ENCOUNTER → 2017-05-14 | Outpatient (CLI) | payer MEDICARE | LOC: M PAIN 08:30 | DX: M50.222 Other cervical disc displacement at C5-C6 level (principal); M25.512 Pain in left shoulder; M54.12 Radiculopathy, cervical region; M79.1 Myalgia; E03.9 Hypothyroidism, unspecified; F17.210 Nicotine dependence, cigarettes, uncomplicated; Z79.899 Other long term (current) drug therapy; Z88.5 Allergy status to narcotic agent; Z88.8 Allergy status to other drugs, medicaments and biological substances | CPT/HCPCS: G0463 ==

== ENCOUNTER → 2017-06-19 | Outpatient (CLI) | payer MEDICARE | LOC: M PAIN 09:45 | DX: M50.222 Other cervical disc displacement at C5-C6 level (principal); M96.1 Postlaminectomy syndrome, not elsewhere classified; M79.1 Myalgia; E03.9 Hypothyroidism, unspecified; F17.210 Nicotine dependence, cigarettes, uncomplicated; Z79.891 Long term (current) use of opiate analgesic; Z79.899 Other long term (current) drug therapy; Z88.5 Allergy status to narcotic agent; Z88.8 Allergy status to other drugs, medicaments and biological substances | CPT/HCPCS: G0463 ==

== ENCOUNTER → 2017-07-31 | Outpatient (CLI) | payer MEDICARE | LOC: M PAIN 08:30 | DX: M50.222 Other cervical disc displacement at C5-C6 level (principal); M79.1 Myalgia; S43.432S Superior glenoid labrum lesion of left shoulder, sequela; E03.9 Hypothyroidism, unspecified; F17.210 Nicotine dependence, cigarettes, uncomplicated; Z79.891 Long term (current) use of opiate analgesic; Z79.899 Other long term (current) drug therapy; Z88.5 Allergy status to narcotic agent; Z88.8 Allergy status to other drugs, medicaments and biological substances | CPT/HCPCS: G0463 ==

== ENCOUNTER → 2017-08-29 | Outpatient (CLI) | payer MEDICARE | LOC: M PAIN 10:15 | DX: M50.222 Other cervical disc displacement at C5-C6 level (principal); M79.1 Myalgia; S43.432A Superior glenoid labrum lesion of left shoulder, initial encounter; E03.9 Hypothyroidism, unspecified; F17.210 Nicotine dependence, cigarettes, uncomplicated; Z79.891 Long term (current) use of opiate analgesic; Z79.899 Other long term (current) drug therapy; Z88.5 Allergy status to narcotic agent; Z88.8 Allergy status to other drugs, medicaments and biological substances; X58.XXXA Exposure to other specified factors, initial encounter; Y92.9 Unspecified place or not applicable | CPT/HCPCS: G0463 ==

== ENCOUNTER → 2017-09-12 | Outpatient (CLI) | payer MEDICARE | LOC: M PAIN 12:45 | DX: M50.222 Other cervical disc displacement at C5-C6 level (principal); M79.1 Myalgia; S43.432A Superior glenoid labrum lesion of left shoulder, initial encounter; E03.9 Hypothyroidism, unspecified; F17.210 Nicotine dependence, cigarettes, uncomplicated; Z79.891 Long term (current) use of opiate analgesic; Z79.899 Other long term (current) drug therapy; Z88.5 Allergy status to narcotic agent; Z88.8 Allergy status to other drugs, medicaments and biological substances; Y92.89 Other specified places as the place of occurrence of the external cause; Y93.89 Activity, other specified; X58.XXXA Exposure to other specified factors, initial encounter; Y99.8 Other external cause status | CPT/HCPCS: G0463 ==

== ENCOUNTER → 2018-03-05 | Outpatient (CLI) | payer MEDICARE ==
--- NOTE | 2018-03-18 00:34 | ECWPNPC ---
PATIENT NAME: KATHRIN DELGADO : 1975 GENDER: MALE VISIT DATE: 03/05/2018 DISCHARGE DATE: 03/05/18 1007 VISIT LOCKED DATE TIME: PHYSICIAN: NELSY WILSON RESOURCE: NELSY WILSON REASON FOR APPOINTMENT 1. SW PATIENT- HISTORY OF PRESENT ILLNESS HISTORY OF PRESENT ILLNESS: HERE FOR F/U OF CHRONIC NECK AND LOW BACK PAIN.THIS INITIALLY BEGAN AFTER HEAVY CONTUSION INJURY TO MID BACK IN 2003.HAD A FALL INJURY IN 2005 AGGREVATING NECK HISTORY OF TWO LUMBAR SURGERIES JULY 2003 AND 2011.RATING PAIN VAS 4/10.HE FINDS CURRENT MEDICATION EFFECTIVE AT REDUCING PAIN AND KEEPING HIM COMFORTABLE.HE IS ASKING TO SEE MELIZA VERDIN IN [place] TO EVALUATE NECK PAIN AND LEFT ARM RADICULOPATHY SYMPTOMS. PAIN THE PATIENT DESCRIBES THE PAIN... FALL RISK SCREENING: SCREENING :NO FALLS IN THE PAST YEAR CURRENT MEDICATIONS TAKING LEVOTHYROXINE SODIUM 125 MCG TABLET 1 TABLET ORALLY ONCE A DAY TAKING DULOXETINE HCL 30 MG CAPSULE DELAYED RELEASE PARTICLES 1 CAPSULE ORALLY ONCE A DAY TAKING HYDROMORPHONE HCL 8 MG TABLET 1 TABLET NEEDED ORALLY EVERY 4 HRS PRN PAIN MDD=6 NOT-TAKING TRAMADOL HCL 50 MG TABLET 1 TABLET ORALLY EVERY 6 HRS PRN PAIN MDD=4 NOT-TAKING CLONIDINE HCL 0.1 MG TABLET 1 TABLET ORALLY Q 8 HRS PRN WITHDRAWAL SYMPTOMS NOT-TAKING NALOXONE HCL 4 MG/0.1ML LIQUID DIRECTED NASALLY PRN FOR RESPIRATORY DISTRESS/ALTERED MENTAL STATE IF USED CALL 911 NOT-TAKING VALIUM 5 MG TABLET 1 TABLET NEEDED ORALLY Q 8 HRS PRN PAIN /ANXIETY NOT-TAKING MELOXICAM 15 MG TABLET 1 TABLET ORALLY ONCE A DAY MEDICATION LIST REVIEWED AND RECONCILED WITH THE PATIENT PAST MEDICAL HISTORY HYPOTHYROIDISM,DISC DISEASE LOW BACK ALLERGIES CODEINE PHOSPHATE (FOR ALLERGIES USE ONLY): NAUSEA/VOMITING NEURONTIN: CHEST PAIN SURGICAL HISTORY LUMBAR DISCECTOMY 2003 LUMBAR FUSION 2011 FAMILY HISTORY FATHER: , DIAGNOSED WITH DIABETES, HEART DISEASE, OTHER MOTHER: ALIVE 1 SISTER(S) - HEALTHY. FATHER - RENAL FAILURE. SOCIAL HISTORY GENERAL: TOBACCO USE ARE YOU A:CURRENT SMOKER ARE YOU INTERESTED IN QUITTING?THINKING ABOUT QUITTING CUTTING DOWN, SOMEDAYS ARE BETTER THAN OTHERS, HAS TRIED THE PATCH AND CHANTIX PREVIOUS QUIT ATTEMPTS?YES, WITHIN THE LAST 6 MONTHS. COUNSELED THE PATIENT ON SMOKING CESSATION, EDUCATION [id number]/29/2019 HOW OFTEN DO YOU SMOKE CIGARETTES?EVERY DAY PATIENT COUNSELED ON THE DANGERS OF TOBACCO USE AND URGED TO QUIT:03/05/2018 RECREATIONAL DRUG USE DRUG USE?YES MARIJUANA, OCCASSIONALLY ORTHODOX [id number] NONE NO RESTORATIONISM BELIEFS THAT WOULD IMPACT HEALTH CARE. LANGUAGE LANGUAGES SPOKEN:TURKMEN LEARNING BARRIERS / SPECIAL NEEDS ORIENTED TO PLAN OF CARE: PATIENT, PAIN MANAGEMENT PATIENT, ORIENTED TO PLAN OF CARE: PATIENT, PAIN MANAGEMENT PATIENT. NEW PATIENT PAIN DIARY TODAY'S VISITNOTES FROM 0-10, WHAT LEVEL IS YOUR PAIN TODAY?7 PAIN CLINIC PFS, CLERGY, PUBLIC HEALTH REFERRALS HAS THE PATIENT BEEN EDUCATED REGARDING HIS/HER PLAN OF CARE?YES HAS THE PATIENT BEEN EDUCATED REGARDING PAIN, THE RISK FOR PAIN, THE IMPORTANCE OF EFFECTIVE PAIN MANAGEMENT, AND THE PAIN ASSESSMENT PROCESS?YES ADVANCE DIRECTIVE ADVANCE DIRECTIVE DISCUSSED WITH PATIENT:YES HCP - HERBERT DELGADO REVIEWED WITH PATIENT 03/05/18 0912 JS. HOSPITALIZATION/MAJOR DIAGNOSTIC PROCEDURE SURG RELATED REVIEW OF SYSTEMS REVIEWED BY: PROVIDER: NELSY ALBA . CONSTITUTIONAL: ANY CHANGE IN YOUR MEDICAL CONDITION? NO . CHILLS NO . FEVER NO . INFECTION: DO YOU HAVE NEW INFECTIONS? NO . DO YOU HAVE HISTORY OF MRSA? NO . MUSCULOSKELETAL: ANY NEW PATTERNS OF PAIN OR NUMBNESS? NO . GASTROENTEROLOGY: ANY NEW CHANGE IN BOWEL CONTROL? NO . GENITOURINARY: ANY NEW CHANGE IN BLADDER CONTROL? NO . IS THERE A CHANCE YOU COULD BE ? NO . HEMATOLOGY/LYMPH: DO YOU TAKE ANY BLOOD THINNERS? (FOR EXAMPLE- COUMADIN, PLAVIX, AGGRENOX, PLATEL, PRADAXA, OR XARELTO) NO . WHEN WAS YOUR LAST DOSE? DATE: TIME: . NEUROLOGY: HAVE YOU FALLEN IN THE PAST 12 MONTHS? FELL WITHIN PAST 12 MONTHS, AFTER LAST VISIT, LOST BALANCE, DID NOT HIT HEAD, HIT LEFT SHOULDER AND RIB CAGE, NO ED VISIT, NO IMAGING . ANY NEW EXTREMITY NUMBNESS OR WEAKNESS? YES, STATES NEW NUMBNESS IN RIGHT ARM AND IN HIS PENIS . CARDIOLOGY: DO YOU HAVE A PACEMAKER OR DEFIBRILLATOR? NO . RESPIRATORY: HAVE YOU BEEN SICK IN THE PAST WEEK? NO . FEVER NO . FLU LIKE SYMPTOMS? NO . COUGH NO . INTEGUMENTARY: DO YOU HAVE ANY RASHES OR OPEN SORES? NO . ALLERGIC/IMMUNO: ARE YOU ALLERGIC TO IV DYE? NO . ANY NEW ALLERGIES? NO . PSYCHIATRIC: DO YOU HAVE THOUGHTS OF HURTING YOURSELF OR SOMEONE ELSE? NO . ARE YOU ABUSED, NEGLECTED, OR IN AN UNSAFE ENVIRONMENT? NO . ENDOCRINOLOGY: ARE YOU DIABETIC? NO . OTHER: DO YOU NEED ANY PRESCRIPTIONS? NOT UNTIL March . IF YES, PLEASE LIST: ____ . ANY NEW PROBLEMS WITH YOUR MEDICATIONS? NO . WHEN DID YOU LAST EAT? ____ . WHEN DID YOU LAST DRINK? ____ . WHAT DID YOU LAST DRINK? ____ . NAME OF PERSON DRIVING YOU HOME? ____ . DO YOU HAVE ANY OTHER QUESTIONS OR CONCERNS YES, WOULD LIKE TO DISCUSS WITH NELSY . VITAL SIGNS WT 228 LBS, HT 68 IN, BMI 34.66 INDEX, BP 134/69 MM HG, HR 69 /MIN, RR 16 /MIN, TEMP 98.7 F, OXYGEN SAT % 96%, SAFE IN ENV? (Y/N) YES, NA INITIALS AW 0859, REVIEWED BY: [place]. EXAMINATION GENERAL EXAMINATION: GENERAL APPEARANCE:AWAKE,ALERT ,PLEAASANT . PSYCHAFFECT NORMAL . LUNGS:LUNG THOMASON ARE CLEAR TO AUSCULTATION BILATERALLY. GOOD MOVEMENT OF AIR . HEART:S1, S2 IN A REGULAR RATE AND RHYTHM. NO SIGNIFICANT MURMURS, RUBS OR GALLOPS NOTED . MUSCULOSKELETAL:MUSCLE STRENGTH TESTING 5/5 BILATERAL UPPER/LOWER EXTREMITIES. CERVICALTRIGGER POINTS:LEFT CERVICAL AND TRAPEZIUS.PAIN IS AGGREVATED WITH ROJM NECK . NEUROLOGIC EXAM:NORMAL SENSATION LIGHT TOUCH BILATERAL ARMS EQUAL STRONG CREW DIRECTOR STRENGTH BILAT. HANDS . DIAGNOSTIC TESTS REVIEWEDMRI C SPINE-01/2017 . ASSESSMENTS MYALGIA - M79.1 (PRIMARY) OTHER CERVICAL DISC DISPLACEMENT AT C5-C6 LEVEL - M50.222 TREATMENT MYALGIA REFILL HYDROMORPHONE HCL TABLET, 8 MG, 1 TABLET NEEDED, ORALLY, EVERY 4 HRS PRN PAIN MDD=6, 30 DAYS, 180, REFILLS 0 REFILL DULOXETINE HCL CAPSULE DELAYED RELEASE PARTICLES, 30 MG, 1 CAPSULE, ORALLY, ONCE A DAY, 30 DAY(S), 30, REFILLS 5 NOTES: ISTOP REGISTRY REVIEWED AND DEMONSTRATES COMPLLIANCE. (REF #[id number] ) BRINGS IN MEDICATIONS WHICH IS APPROPRIATE FOR WHAT WAS DISPENSED. RECENT URINE TOXICOLOGY REVIEWED. NO UNAUTHORIZED MEDICATIONS. NO ILLICIT SUBSTANCES AND PRESCRIBED MEDICATIONS WERE PRESENT. URINE TOX TODAY, RISKS AND BENEFITS OF NARCOTIC/OPIOD MEDICATIONS WERE REVIEWED WITH PATIENT - THIS INCLUDES BUT IS NOT LIMITED TO RISK OF DEPENDANCE/DEVELOPMENT OF ADDICTION, MOOD DISTURBANCE AND DEPRESSION, OSTEOPOROSIS, HORMONAL AND LABIDAL CHANGES, RESPIRATORY DEPRESSION AND . PATIENT IS ADVISED NOT TO DRIVE OR DRINK ALCOHOL WHILE ON THESE MEDICATIONSTPI LEFT NECK/RHOMBOID/TRAP,TRIGGER POINT INJECTION: YOUR EXPERIENCE MATERIAL WAS PRINTED,TRIGGER POINT INJECTION MATERIAL WAS PRINTED. REFERRAL TO:[facility] MELIZA VERDIN REASON:CERVICAL DISC PROTRUSION W LEFT ARM RADICULAR SYMPTOMS/LEFT SHOULDER PAIN PREVENTIVE MEDICINE PAIN CLINIC TEACHING: PROCEDURE TEACHING PRINTED AND REVIEWED INFORMATION ON TRIGGER POINT INJECTIONS WITH PATIENT. ALSO REVIEWED PRE-PROCEDURE INSTRUCTIONS. PATIENT VERBALIZED AN UNDERSTANDING. ASHLEY NIEVES 03/05/2018 10:12:24 AM > . PROCEDURE CODES FA211 ESTABILISHED PATIENT [facility] FACILITY CHARGE DISPOSITION & COMMUNICATION FOLLOW UP POST BRING MEDICATION (REASON: TPI LEFT NECK/RHOMBOID/TRAP) ELECTRONICALLY SIGNED BY ANJALI BURNS ON 03/17/2018 AT 02:33 PM EST DISCLAIMER : THIS IS A VISIT SUMMARY EXTRACTED FROM THE [employer] CHART. IT IS NOT A COPY OF THE [employer] PROGRESS NOTE. BRIDGER
== END ==
LOC: M PAIN 09:00
PROVIDERS: ATTEND Nurse Practitioner Family
DX: M79.18 Myalgia, other site (principal); M50.222 Other cervical disc displacement at C5-C6 level; E03.9 Hypothyroidism, unspecified; F17.210 Nicotine dependence, cigarettes, uncomplicated; Z88.5 Allergy status to narcotic agent; Z88.8 Allergy status to other drugs, medicaments and biological substances; Z79.899 Other long term (current) drug therapy

== ENCOUNTER → 2018-03-21 | Outpatient (CLI) | payer MEDICARE ==
[~2018-03-21] MED LIST changes: +BUPIVACAINE HCL 0.25% 10 ML VIAL As Ordered ONE; +BUPIVACAINE HCL 0.25% 30 ML VIAL As Ordered ONE; +TRIAMCINOLONE ACETONIDE SUSP 40 MG/ML VIAL (J3301) As Ordered ONE; +diazePAM 5 MG TAB As Ordered ONE; +oxyCODONE 5MG TAB As Ordered ONE
--- NOTE | 2018-04-08 00:14 | ECWPNPC ---
PATIENT NAME: KATHRIN DELGADO : 1975 GENDER: MALE VISIT DATE: 03/21/2018 DISCHARGE DATE: 03/21/18 1020 VISIT LOCKED DATE TIME: PHYSICIAN: PRITI CROSS MD RESOURCE: PRITI CROSS MD REASON FOR APPOINTMENT 1. TPI HISTORY OF PRESENT ILLNESS HISTORY OF PRESENT ILLNESS: PAIN THE PATIENT DESCRIBES THE PAIN... FALL RISK SCREENING: SCREENING : NO FALLS IN THE PAST YEAR. CURRENT MEDICATIONS TAKING LEVOTHYROXINE SODIUM 125 MCG TABLET 1 TABLET ORALLY ONCE A DAY, NOTES: 0545 TAKING DULOXETINE HCL 30 MG CAPSULE DELAYED RELEASE PARTICLES 1 CAPSULE ORALLY ONCE A DAY, NOTES: 0545 TAKING HYDROMORPHONE HCL 8 MG TABLET 1 TABLET NEEDED ORALLY EVERY 4 HRS PRN PAIN MDD=6, NOTES: 070O DISCONTINUED TRAMADOL HCL 50 MG TABLET 1 TABLET ORALLY EVERY 6 HRS PRN PAIN MDD=4 DISCONTINUED CLONIDINE HCL 0.1 MG TABLET 1 TABLET ORALLY Q 8 HRS PRN WITHDRAWAL SYMPTOMS DISCONTINUED NALOXONE HCL 4 MG/0.1ML LIQUID DIRECTED NASALLY PRN FOR RESPIRATORY DISTRESS/ALTERED MENTAL STATE IF USED CALL 911 DISCONTINUED VALIUM 5 MG TABLET 1 TABLET NEEDED ORALLY Q 8 HRS PRN PAIN /ANXIETY DISCONTINUED MELOXICAM 15 MG TABLET 1 TABLET ORALLY ONCE A DAY MEDICATION LIST REVIEWED AND RECONCILED WITH THE PATIENT PAST MEDICAL HISTORY HYPOTHYROIDISM,DISC DISEASE 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 FATHER - RENAL FAILURE. SOCIAL HISTORY GENERAL: TOBACCO USE ARE YOU A:CURRENT SMOKER ARE YOU INTERESTED IN QUITTING?THINKING ABOUT QUITTING CUTTING DOWN, SOMEDAYS ARE BETTER THAN OTHERS, HAS TRIED THE PATCH AND CHANTIX PREVIOUS QUIT ATTEMPTS?YES, WITHIN THE LAST 6 MONTHS. COUNSELED THE PATIENT ON SMOKING CESSATION, EDUCATION [id number]/14/2019 HOW OFTEN DO YOU SMOKE CIGARETTES?EVERY DAY PATIENT COUNSELED ON THE DANGERS OF TOBACCO USE AND URGED TO QUIT:03/21/2018 RECREATIONAL DRUG USE DRUG USE?YES MARIJUANA, OCCASSIONALLY CAFFEINE CAFFEINE USE?YES 1 CUP OF COFFEE AND 4 PEPSIS PER DAY CATHOLIC [id number] NONE NO SAMARITAN BELIEFS THAT WOULD IMPACT HEALTH CARE. LANGUAGE LANGUAGES SPOKEN:VIETNAMESE LEARNING BARRIERS / SPECIAL NEEDS ORIENTED TO PLAN OF CARE: PATIENT, PAIN MANAGEMENT PATIENT, ORIENTED TO PLAN OF CARE: PATIENT, PAIN MANAGEMENT PATIENT. OCCUPATION: DISABLED. DIET: REGULAR. EXERCISE: WALKS. MARITAL STATUS: . OTHERS AT HOME: SPOUSE. NEW PATIENT PAIN DIARY TODAY'S VISITNOTES FROM 0-10, WHAT LEVEL IS YOUR PAIN TODAY?6 PAIN CLINIC PFS, CLERGY, PUBLIC HEALTH REFERRALS HAS THE PATIENT BEEN EDUCATED REGARDING HIS/HER PLAN OF CARE?YES HAS THE PATIENT BEEN EDUCATED REGARDING PAIN, THE RISK FOR PAIN, THE IMPORTANCE OF EFFECTIVE PAIN MANAGEMENT, AND THE PAIN ASSESSMENT PROCESS?YES ADVANCE DIRECTIVE ADVANCE DIRECTIVE DISCUSSED WITH PATIENT:YES HCP - HERBERT DELGADO REVIEWED WITH PATIENT 03/05/18 0912 JS. HOSPITALIZATION/MAJOR DIAGNOSTIC PROCEDURE SURG RELATED REVIEW OF SYSTEMS REVIEWED BY: PROVIDER: . CONSTITUTIONAL: ANY CHANGE IN YOUR MEDICAL CONDITION? NO . CHILLS NO . FEVER NO . INFECTION: DO YOU HAVE NEW INFECTIONS? NO . DO YOU HAVE HISTORY OF MRSA? NO . MUSCULOSKELETAL: ANY NEW PATTERNS OF PAIN OR NUMBNESS? NO . GASTROENTEROLOGY: ANY NEW CHANGE IN BOWEL CONTROL? NO . GENITOURINARY: ANY NEW CHANGE IN BLADDER CONTROL? NO . IS THERE A CHANCE YOU COULD BE ? NO . HEMATOLOGY/LYMPH: DO YOU TAKE ANY BLOOD THINNERS? (FOR EXAMPLE- COUMADIN, PLAVIX, AGGRENOX, PLATEL, PRADAXA, OR XARELTO) NO . WHEN WAS YOUR LAST DOSE? DATE: TIME: . NEUROLOGY: HAVE YOU FALLEN IN THE PAST 12 MONTHS? YES . ANY NEW EXTREMITY NUMBNESS OR WEAKNESS? NO . CARDIOLOGY: DO YOU HAVE A PACEMAKER OR DEFIBRILLATOR? NO . RESPIRATORY: HAVE YOU BEEN SICK IN THE PAST WEEK? NO . FEVER NO . FLU LIKE SYMPTOMS? NO . COUGH NO . INTEGUMENTARY: DO YOU HAVE ANY RASHES OR OPEN SORES? NO . ALLERGIC/IMMUNO: ARE YOU ALLERGIC TO IV DYE? NO . ANY NEW ALLERGIES? NO . PSYCHIATRIC: DO YOU HAVE THOUGHTS OF HURTING YOURSELF OR SOMEONE ELSE? NO . ARE YOU ABUSED, NEGLECTED, OR IN AN UNSAFE ENVIRONMENT? NO . ENDOCRINOLOGY: ARE YOU DIABETIC? NO . OTHER: DO YOU NEED ANY PRESCRIPTIONS? NO . IF YES, PLEASE LIST: ____ . ANY NEW PROBLEMS WITH YOUR MEDICATIONS? NO . WHEN DID YOU LAST EAT? ____03/20/18 . WHEN DID YOU LAST DRINK? ____0600 . WHAT DID YOU LAST DRINK? ____WATER . NAME OF PERSON DRIVING YOU HOME? ____BARBARA . DO YOU HAVE ANY OTHER QUESTIONS OR CONCERNS YES,NEED A 4 DAYSCRIPT FOR STRONGER HYDROMORPHONE . VITAL SIGNS WT 230.6 LBS, HT 68 IN, BMI 35.06 INDEX, BP 131/80 MM HG, HR 73 /MIN, RR 18 /MIN, TEMP 97.1 F, OXYGEN SAT % 95%, SAFE IN ENV? (Y/N) Y, NA INITIALS ID [id number], REVIEWED BY: VD. ASSESSMENTS MYALGIA, OTHER SITE - M79.18 (PRIMARY) TREATMENT OTHERS REFILL HYDROMORPHONE HCL TABLET, 8 MG, 1 TABLET NEEDED, ORALLY, EVERY 4 HRS PRN PAIN MDD=6, 7 DAYS, 42, REFILLS 0, NOTES: 070O PROCEDURES PN TRIGGER POINT INJECTION WITH STEROIDS PRE PROCEDURE DIAGNOSIS 1. MYALGIA 2. PAIN AT BILATERAL SHOULDER AREA POST PROCEDURE DIAGNOSIS 1. MYALGIA 2. PAIN AT BILATERAL SHOULDER AREA PROCEDURE TRIGGER POINT INJECTION AT BILATERAL SHOULDER AREA SURGEON DR. PRITI CROSS RN INTEGRITY NONE ANESTHESIA LOCAL PRE PROCEDURE NOTE THE PATIENT HAS A HISTORY OF CHRONIC PAIN AT THE RIGHT AND LEFT SHOULDER AREA. I EVALUATE THE PATIENT AND REVIEWED THE CHART. THERE IS EVIDENCE OF BANDS OF TISSUE WITH RESTRICTION OF MOVEMENT AND PRESENCE OF TRIGGER POINT AT THE AFFECTED AREA. I WENT OVER THE RISKS, ALTERNATIVES, AND BENEFITS ASSOCIATED WITH THIS PROCEDURE. THE PATIENT WOULD LIKE TO PROCEED AND GIVE CONSENT TO PERFORMED THE PROCEDURE. THE PATIENT DENIES UNEXPLAINABLE WEIGHT LOSS, FEVER, CHILLS, OR NEW CHANGES IN URINARY OR BOWEL CONTROL DESCRIPTION OF PROCEDURE THE PATIENT WAS BROUGHT TO THE PROCEDURE ROOM AND PLACED IN THE SITTING POSITION. THE AREA WAS CLEANED WITH ALCOHOL. THE PROCEDURE WAS DONE USING ASEPTIC STERILE TECHNIQUE. I CHECKED LATERALITY AND THE LEVEL WHERE THE PROCEDURE WAS GOING TO BE PERFORMED WITH THE PATIENT AND THE SUPPORTING STAFF AT THE MOMENT OF THE TIME OUT IN THE PROCEDURE ROOM. USING A 25-GAUGE NEEDLE, TRIGGER POINTS WERE INJECTED AT THE RIGHT AND LEFT SHOULDER AREA WITH A TOTAL OF 40 ML OF BUPIVACAINE 0.25% AND KENALOG 40 MG. THERE WAS NO EVIDENCE OF BLOOD, PARESTHESIA OR CEREBROSPINAL FLUID DURING THE PROCEDURE. THE PATIENT WAS SENT TO THE RECOVERY ROOM. THE PATIENT WAS MOVING THE EXTREMITIES AND DOING WELL. THERE WAS NO COMPLICATION DURING THE PROCEDURE POST PROCEDURE NOTE THE PATIENT WILL BE SEEN IN A FOLLOW UP IN THE NEXT FEW WEEKS. INSTRUCTIONS WERE GIVEN, QUESTIONS WERE ANSWERED, AND THE PATIENT EXPRESSED UNDERSTANDING AND AGREES WITH THE PLAN. I, TREY VILLATORO, DOCUMENTED THE ABOVE INFORMATION ACTING A SCRIBE FOR DR. CROSS. I HAVE REVIEWED THE ABOVE DOCUMENT, WRITTEN BY TREY UNGERIBJeffrey AND I VERIFY THAT IT IS ACCURATE. PROCEDURE CODES 13041 INJ TRIGGER POINT 02/06 [facility] DISPOSITION & COMMUNICATION FOLLOW UP 3 WEEKS ELECTRONICALLY SIGNED BY PRITI CROSS MD, MD ON 04/07/2018 AT 01:14 PM EST DISCLAIMER : THIS IS A VISIT SUMMARY EXTRACTED FROM THE [employer] CHART. IT IS NOT A COPY OF THE [employer] PROGRESS NOTE. BRIDGER
== END ==
LOC: M PAIN 08:30
PROVIDERS: ATTEND Anesthesiology
DX: M79.18 Myalgia, other site (principal); M25.511 Pain in right shoulder; M25.512 Pain in left shoulder; E03.9 Hypothyroidism, unspecified; Z72.0 Tobacco use; Z79.899 Other long term (current) drug therapy; Z88.5 Allergy status to narcotic agent; Z88.8 Allergy status to other drugs, medicaments and biological substances
CPT/HCPCS: 20552; J3301

== ENCOUNTER → 2018-04-24 | Outpatient (CLI) | payer MEDICARE ==
[~2018-04-24] MED LIST changes: -BUPIVACAINE HCL 0.25% 10 ML VIAL As Ordered ONE; -BUPIVACAINE HCL 0.25% 30 ML VIAL As Ordered ONE; -TRIAMCINOLONE ACETONIDE SUSP 40 MG/ML VIAL (J3301) As Ordered ONE; -diazePAM 5 MG TAB As Ordered ONE; -oxyCODONE 5MG TAB As Ordered ONE
--- NOTE | 2018-05-09 00:17 | ECWPNPC ---
PATIENT NAME: KATHRIN DELGADO : 1975 GENDER: MALE VISIT DATE: 04/24/2018 DISCHARGE DATE: 04/24/18 1437 VISIT LOCKED DATE TIME: PHYSICIAN: NELSY WILOSN RESOURCE: NELSY WILSON REASON FOR APPOINTMENT 1. INCREASED PAIN HISTORY OF PRESENT ILLNESS HISTORY OF PRESENT ILLNESS: HERE FOR POST PROCEDURE /U HAD TPI BILATERAL SHOULDERS ON 03/21/18.HAD INITIAL IRRITATION THEN PAIN HAS IMPROVED AND CONTINUES TODAY.WORSE AREA OF PAIN IS NECK.RATING NECK PAIN 7/10 VAS.DISCUSSED BREECH OF NARCOTIC AGREEMENT WITH RECENT OVERTAKING OF DILAUDID THAT PATIENT BLAMES ON INCREASE IN MUSCLE SPASM PAIN INITIALLY AFTER TPI 2 WEEKS AGO.ALSO ANORMAL URINE TOX IS DISCUSSED.ALSO TODAY HE STATES SOME OF HIS MEDICATION IS AT HOME IN PILL BOX.HE IS AWARE AFTER OUR DISCUSSION THAT ALL MEDICATION HAS TO BE BROUGHT TO CLINIC EVERY VISIT,NO MARIJUANA CAN BE IN URINE TOX AND NO ADJUSTING HIS MEDICATIONS OR INCREASING HIS MEDICATIONS.HE IS ACCOMPANIED IN EXAM ROOM WITH SIGNIFICANT OTHER. PAIN THE PATIENT DESCRIBES THE PAIN... FALL RISK SCREENING: SCREENING : NO FALLS IN THE PAST YEAR. 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 FATHER - RENAL FAILURE. SOCIAL HISTORY GENERAL: TOBACCO USE ARE YOU A:CURRENT SMOKER ARE YOU INTERESTED IN QUITTING?THINKING ABOUT QUITTING CUTTING DOWN, SOMEDAYS ARE BETTER THAN OTHERS, HAS TRIED THE PATCH AND CHANTIX PREVIOUS QUIT ATTEMPTS?YES, WITHIN THE LAST 6 MONTHS. COUNSELED THE PATIENT ON SMOKING CESSATION, EDUCATION [id number] HOW OFTEN DO YOU SMOKE CIGARETTES?EVERY DAY PATIENT COUNSELED ON THE DANGERS OF TOBACCO USE AND URGED TO QUIT:03/21/2018 RECREATIONAL DRUG USE DRUG USE?YES MARIJUANA, OCCASSIONALLY CAFFEINE CAFFEINE USE?YES 1 CUP OF COFFEE AND 4 PEPSIS PER DAY [facility] [id number] NONE NO ORTHODOX BELIEFS THAT WOULD IMPACT HEALTH CARE. LANGUAGE LANGUAGES SPOKEN:COLOMBIAN LEARNING BARRIERS / SPECIAL NEEDS ORIENTED TO PLAN OF CARE: PATIENT, PAIN MANAGEMENT PATIENT, ORIENTED TO PLAN OF CARE: PATIENT, PAIN MANAGEMENT PATIENT. OCCUPATION: DISABLED. DIET: REGULAR. EXERCISE: WALKS. MARITAL STATUS: . OTHERS AT HOME: SPOUSE. NEW PATIENT PAIN DIARY TODAY'S VISITNOTES FROM 0-10, WHAT LEVEL IS YOUR PAIN TODAY?6 PAIN CLINIC PFS, CLERGY, PUBLIC HEALTH REFERRALS HAS THE PATIENT BEEN EDUCATED REGARDING HIS/HER PLAN OF CARE?YES HAS THE PATIENT BEEN EDUCATED REGARDING PAIN, THE RISK FOR PAIN, THE IMPORTANCE OF EFFECTIVE PAIN MANAGEMENT, AND THE PAIN ASSESSMENT PROCESS?YES ADVANCE DIRECTIVE ADVANCE DIRECTIVE DISCUSSED WITH PATIENT:YES HCP - HERBERT DELGADO REVIEWED WITH PATIENT 03/05/18 0912 JS. HOSPITALIZATION/MAJOR DIAGNOSTIC PROCEDURE SURG RELATED REVIEW OF SYSTEMS REVIEWED BY: PROVIDER: NELSY ALBA . CONSTITUTIONAL: ANY CHANGE IN YOUR MEDICAL CONDITION? NO . CHILLS NO . FEVER NO . INFECTION: DO YOU HAVE NEW INFECTIONS? NO . DO YOU HAVE HISTORY OF MRSA? NO . MUSCULOSKELETAL: ANY NEW PATTERNS OF PAIN OR NUMBNESS? YES, LOW BACK ACHES MORE THAN USUAL . GASTROENTEROLOGY: ANY NEW CHANGE IN BOWEL CONTROL? NO . GENITOURINARY: ANY NEW CHANGE IN BLADDER CONTROL? NO . IS THERE A CHANCE YOU COULD BE ? NO . HEMATOLOGY/LYMPH: DO YOU TAKE ANY BLOOD THINNERS? (FOR EXAMPLE- COUMADIN, PLAVIX, AGGRENOX, PLATEL, PRADAXA, OR XARELTO) NO . WHEN WAS YOUR LAST DOSE? DATE: TIME: . NEUROLOGY: HAVE YOU FALLEN IN THE PAST 12 MONTHS? YES, PT FELL 04/19/18, FROM LOSS OF BALANCE, PT DENIES INJURIES . ANY NEW EXTREMITY NUMBNESS OR WEAKNESS? NO . CARDIOLOGY: DO YOU HAVE A PACEMAKER OR DEFIBRILLATOR? NO . RESPIRATORY: HAVE YOU BEEN SICK IN THE PAST WEEK? NO . FEVER NO . FLU LIKE SYMPTOMS? NO . COUGH NO . INTEGUMENTARY: DO YOU HAVE ANY RASHES OR OPEN SORES? NO . ALLERGIC/IMMUNO: ARE YOU ALLERGIC TO IV DYE? NO . ANY NEW ALLERGIES? NO . PSYCHIATRIC: DO YOU HAVE THOUGHTS OF HURTING YOURSELF OR SOMEONE ELSE? NO . ARE YOU ABUSED, NEGLECTED, OR IN AN UNSAFE ENVIRONMENT? NO . ENDOCRINOLOGY: ARE YOU DIABETIC? NO . OTHER: DO YOU NEED ANY PRESCRIPTIONS? YES, HYDROMORPHONE NEXT WEEK . IF YES, PLEASE LIST: ____ . ANY NEW PROBLEMS WITH YOUR MEDICATIONS? NO . WHEN DID YOU LAST EAT? ____ . WHEN DID YOU LAST DRINK? ____ . WHAT DID YOU LAST DRINK? ____ . NAME OF PERSON DRIVING YOU HOME? ____ . DO YOU HAVE ANY OTHER QUESTIONS OR CONCERNS NO . VITAL SIGNS WT 229.4 LBS, HT 68 IN, BMI 34.88 INDEX, BP 140/79 MM HG, HR 72 /MIN, RR 18 /MIN, TEMP 96.8 F, OXYGEN SAT % 97%, NA INITIALS AW 1357, REVIEWED BY: EM. EXAMINATION GENERAL EXAMINATION: GENERAL APPEARANCE:AWAKE,ALERT ,PLEAASANT . PSYCHAFFECT NORMAL . LUNGS:LUNG THOMASON ARE CLEAR TO AUSCULTATION BILATERALLY. GOOD MOVEMENT OF AIR . HEART:S1, S2 IN A REGULAR RATE AND RHYTHM. NO SIGNIFICANT MURMURS, RUBS OR GALLOPS NOTED . ASSESSMENTS MYALGIA - M79.1 (PRIMARY) TREATMENT MYALGIA STOP PERCOCET TABLET, 10-325 MG, 1 TABLET NEEDED, ORALLY, Q4-6H PRN MDD6 CONTINUE DULOXETINE HCL CAPSULE DELAYED RELEASE PARTICLES, 30 MG, 1 CAPSULE, ORALLY, ONCE A DAY CONTINUE HYDROMORPHONE HCL TABLET, 8 MG, 1 TABLET NEEDED, ORALLY, EVERY 4 HRS PRN PAIN MDD=6 NOTES: ISTOP REGISTRY REVIEWED AND DEMONSTRATES COMPLLIANCE. (REF #[id number] ) BRINGS IN MEDICATIONS WHICH IS APPROPRIATE FOR WHAT WAS DISPENSED. RECENT URINE TOXICOLOGY REVIEWED. ABNORMAL DUE TO PRESENCE OF MARIJUANA.PRESCRIBED MEDICATIONS WERE PRESENT. , RISKS AND BENEFITS OF NARCOTIC/OPIOD MEDICATIONS WERE REVIEWED WITH PATIENT - THIS INCLUDES BUT IS NOT LIMITED TO RISK OF DEPENDANCE/DEVELOPMENT OF ADDICTION, MOOD DISTURBANCE AND DEPRESSION, OSTEOPOROSIS, HORMONAL AND LABIDAL CHANGES, RESPIRATORY DEPRESSION AND . PATIENT IS ADVISED NOT TO DRIVE OR DRINK ALCOHOL WHILE ON THESE MEDICATIONS. PROCEDURE CODES FA211 ESTABILISHED PATIENT [facility] CHARGE DISPOSITION & COMMUNICATION FOLLOW UP 6 WEEKS ELECTRONICALLY SIGNED BY ANJALI BURNS ON 05/08/2018 AT 09:56 AM EDT DISCLAIMER : THIS IS A VISIT SUMMARY EXTRACTED FROM THE [employer] CHART. IT IS NOT A COPY OF THE [employer] PROGRESS NOTE. BRIDGER
== END ==
LOC: M PAIN 13:30
PROVIDERS: ATTEND Nurse Practitioner Family
DX: M79.18 Myalgia, other site (principal); E03.9 Hypothyroidism, unspecified; F17.210 Nicotine dependence, cigarettes, uncomplicated; Z79.899 Other long term (current) drug therapy; Z88.5 Allergy status to narcotic agent; Z88.8 Allergy status to other drugs, medicaments and biological substances

== ENCOUNTER → 2018-06-07 | Outpatient (CLI) | payer MEDICARE ==
[~2018-06-07] MED LIST changes: -/DULO30CA; +CYMB1CAP5
--- NOTE | 2018-07-03 01:41 | ECWPNPC ---
PATIENT NAME: KATHRIN DELGADO : 1975 GENDER: MALE VISIT DATE: 06/07/2018 DISCHARGE DATE: 06/07/18926 VISIT LOCKED DATE TIME: PHYSICIAN: NELSY WILSON RESOURCE: NELSY WILSON REASON FOR APPOINTMENT 1. NECK/BACK HISTORY OF PRESENT ILLNESS HISTORY OF PRESENT ILLNESS: HERE FOR F/U OF CHRONIC NECK AND LOW BACK PAIN.RATING PAIN VAS 7/10.CHIEF AREA OF PAIN IS NECK.PATIENT HAS NOT HEARD FROM REFERRAL WE MADE TO [facility] IN FEBRUARY.HE WILL CALL .THIS IS TO EVALUATE NECK PAIN/LEFT ARM RADICULAR SYMPTOMS.DISCUSSED GOAL TO REDUCE DILAUDID TO MAX 4 TAB PER DAY.DISCUSSED POSSIBLY DOING LONG ACTING DILAUDID.REVIEWED MRI C SPINE AND HE IS OPEN TO TRY EPIDURAL AT THIS TIME.REPORTING INCREASE IN PAIN OVER THE PAST 2 MONTHS. PAIN THE PATIENT DESCRIBES THE PAIN... 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 FATHER - RENAL FAILURE. SOCIAL HISTORY GENERAL: TOBACCO USE ARE YOU A:CURRENT SMOKER ARE YOU INTERESTED IN QUITTING?THINKING ABOUT QUITTING CUTTING DOWN, SOMEDAYS ARE BETTER THAN OTHERS, HAS TRIED THE PATCH AND CHANTIX PREVIOUS QUIT ATTEMPTS?YES, WITHIN THE LAST 6 MONTHS. COUNSELED THE PATIENT ON SMOKING CESSATION, EDUCATION [id number]/20/2019 HOW OFTEN DO YOU SMOKE CIGARETTES?EVERY DAY PATIENT COUNSELED ON THE DANGERS OF TOBACCO USE AND URGED TO QUIT:06/07/2018 OTHERS AT HOME: SPOUSE. DIET: REGULAR. LANGUAGE LANGUAGES SPOKEN:CUBAN NEW PATIENT PAIN DIARY TODAY'S VISITNOTES FROM 0-10, WHAT LEVEL IS YOUR PAIN TODAY?6 RECREATIONAL DRUG USE DRUG USE?YES MARIJUANA, OCCASSIONALLY EXERCISE: WALKS. LEARNING BARRIERS / SPECIAL NEEDS ORIENTED TO PLAN OF CARE: PATIENT, PAIN MANAGEMENT PATIENT, ORIENTED TO PLAN OF CARE: PATIENT, PAIN MANAGEMENT PATIENT. PAIN CLINIC PFS, CLERGY, PUBLIC HEALTH REFERRALS WAS THE PROVIDER NOTIFIED OF ANY PERTINENT INFO?YES HAS THE PATIENT BEEN EDUCATED REGARDING HIS/HER PLAN OF CARE?YES HAS THE PATIENT BEEN EDUCATED REGARDING PAIN, THE RISK FOR PAIN, THE IMPORTANCE OF EFFECTIVE PAIN MANAGEMENT, AND THE PAIN ASSESSMENT PROCESS?YES LATEX QUESTIONNAIRE LATEX ALLERGY : HAVE YOU EVER DEVELOPED ANY TYPE OF REACTION AFTER HANDLING LATEX PRODUCTS SUCH RUBBER GLOVES, CONDOMS, DIAPHRAGMS, BALLOONS, SOCKS, OR UNDERWEAR?NO LATEX ALLERGY : HAVE YOU EVER DEVELOPED ANY TYPE OF REACTION DURING OR AFTER DENTAL APPOINTMENT, VAGINAL/RECTAL EXAMINATION, SURGICAL PROCEDURE, OR ANY OTHER EXPOSURE?NO LATEX RISK : HAVE YOU EVER HAD ANY DIFFICULTY BREATHING OR HIVES AFTER EATING OR HANDLING ANY FRUITS, OR VEGETABLES; SUCH KIWI, BANANAS, STONE FRUITS, OR CHESTNUTSNO LATEX RISK : DO YOU HAVE A PREVIOUS PERSONAL HISTORY OF MORE THAN NINE SURGERIES, SPINA BIFIDA, OR REPEATED CATHERTIZATIONS? NO LATEX RISK : ARE YOU FREQUENTLY EXPOSED TO LATEX PRODUCTS IN YOUR OCCUPATION?NO DATE ASKED : 06/07/2018 CAFFEINE CAFFEINE USE?YES 1 CUP OF COFFEE AND 4 PEPSIS PER DAY ADVANCE DIRECTIVE ADVANCE DIRECTIVE DISCUSSED WITH PATIENT:YES HCP - HERBERT DELGADO HINDUISM [id number] NONE NO BUDDHIST BELIEFS THAT WOULD IMPACT HEALTH CARE. MARITAL STATUS: . OCCUPATION: DISABLED. REVIEWED WITH PATIENT 03/05/18 0912 JS. HOSPITALIZATION/MAJOR DIAGNOSTIC PROCEDURE SURG RELATED REVIEW OF SYSTEMS REVIEWED BY: PROVIDER: NELSY ALBA . CONSTITUTIONAL: ANY CHANGE IN YOUR MEDICAL CONDITION? NO . CHILLS NO . FEVER NO . INFECTION: DO YOU HAVE NEW INFECTIONS? NO . DO YOU HAVE HISTORY OF MRSA? NO . MUSCULOSKELETAL: ANY NEW PATTERNS OF PAIN OR NUMBNESS? NO . GASTROENTEROLOGY: ANY NEW CHANGE IN BOWEL CONTROL? NO . GENITOURINARY: ANY NEW CHANGE IN BLADDER CONTROL? NO . IS THERE A CHANCE YOU COULD BE ? NO . HEMATOLOGY/LYMPH: DO YOU TAKE ANY BLOOD THINNERS? (FOR EXAMPLE- COUMADIN, PLAVIX, AGGRENOX, PLATEL, PRADAXA, OR XARELTO) NO . WHEN WAS YOUR LAST DOSE? DATE: TIME: . NEUROLOGY: ANY NEW EXTREMITY NUMBNESS OR WEAKNESS? NO . CARDIOLOGY: DO YOU HAVE A PACEMAKER OR DEFIBRILLATOR? NO . RESPIRATORY: HAVE YOU BEEN SICK IN THE PAST WEEK? NO . FEVER NO . FLU LIKE SYMPTOMS? NO . COUGH NO . INTEGUMENTARY: DO YOU HAVE ANY RASHES OR OPEN SORES? NO . ALLERGIC/IMMUNO: ARE YOU ALLERGIC TO IV DYE? NO . ANY NEW ALLERGIES? NO . PSYCHIATRIC: DO YOU HAVE THOUGHTS OF HURTING YOURSELF OR SOMEONE ELSE? NO . ARE YOU ABUSED, NEGLECTED, OR IN AN UNSAFE ENVIRONMENT? NO . ENDOCRINOLOGY: ARE YOU DIABETIC? NO . OTHER: DO YOU NEED ANY PRESCRIPTIONS? NO . IF YES, PLEASE LIST: ____ . ANY NEW PROBLEMS WITH YOUR MEDICATIONS? NO . WHEN DID YOU LAST EAT? ____ . WHEN DID YOU LAST DRINK? ____ . WHAT DID YOU LAST DRINK? ____ . NAME OF PERSON DRIVING YOU HOME? ____ . DO YOU HAVE ANY OTHER QUESTIONS OR CONCERNS PT STATES THAT PAIN IS GETTING WORSE, PT STATES THAT HE FELL IN THE LAST 12 MONTHS, HE WAS AT HOME, NO INJURY, NO REPORT TO ED. . VITAL SIGNS WT 239.2 LBS, HT 68 IN, BMI 36.37 INDEX, BP 128/81 MM HG, HR 66 /MIN, RR 18 /MIN, TEMP 98.2 F, OXYGEN SAT % 98%, SAFE IN ENV? (Y/N) Y, REVIEWED BY: KAVITHA. EXAMINATION GENERAL EXAMINATION: GENERAL APPEARANCE: AWAKE,ALERT ,PLEAASANT . PSYCH AFFECT NORMAL . LUNGS: LUNG THOMASON ARE CLEAR TO AUSCULTATION BILATERALLY. GOOD MOVEMENT OF AIR . HEART: S1, S2 IN A REGULAR RATE AND RHYTHM. NO SIGNIFICANT MURMURS, RUBS OR GALLOPS NOTED . CERVICAL TENDER OVER CERVICAL SPINE AND CERVICAL PARASPINALS.. DIAGNOSTIC TESTS REVIEWED MRI C/SPINE-01/09/17. ASSESSMENTS OTHER CERVICAL DISC DISPLACEMENT AT C5-C6 LEVEL - M50.222 (PRIMARY) LUMBAR POST-LAMINECTOMY SYNDROME - M96.1 TREATMENT OTHER CERVICAL DISC DISPLACEMENT AT C5-C6 LEVEL CONTINUE HYDROMORPHONE HCL TABLET, 8 MG, 1 TABLET NEEDED, ORALLY, EVERY 4 HRS PRN PAIN MDD=6 CONTINUE DULOXETINE HCL CAPSULE DELAYED RELEASE PARTICLES, 30 MG, 1 CAPSULE, ORALLY, ONCE A DAY NOTES: ISTOP REGISTRY REVIEWED AND DEMONSTRATES COMPLLIANCE. (REF # [id number] ) BRINGS IN MEDICATIONS WHICH IS APPROPRIATE FOR WHAT WAS DISPENSED. , RISKS AND BENEFITS OF NARCOTIC/OPIOD MEDICATIONS WERE REVIEWED WITH PATIENT - THIS INCLUDES BUT IS NOT LIMITED TO RISK OF DEPENDANCE/DEVELOPMENT OF ADDICTION, MOOD DISTURBANCE AND DEPRESSION, OSTEOPOROSIS, HORMONAL AND LABIDAL CHANGES, RESPIRATORY DEPRESSION AND . PATIENT IS ADVISED NOT TO DRIVE OR DRINK ALCOHOL WHILE ON THESE MEDICATIONSC5/6 ABHI. PROCEDURE CODES FA211 ESTABILISHED [facility]IENT [facility] CHARGE DISPOSITION & COMMUNICATION FOLLOW UP F/U (REASON: C5/6 ABHI) ELECTRONICALLY SIGNED BY ANJALI BURNS ON 07/02/2018 AT 08:04 AM EDT DISCLAIMER : THIS IS A VISIT SUMMARY EXTRACTED FROM THE [employer] CHART. IT IS NOT A COPY OF THE [employer] PROGRESS NOTE. BRIDGER
== END ==
LOC: M PAIN 08:30
PROVIDERS: ATTEND Nurse Practitioner Family
DX: M50.222 Other cervical disc displacement at C5-C6 level (principal); M96.1 Postlaminectomy syndrome, not elsewhere classified; E03.9 Hypothyroidism, unspecified; F17.210 Nicotine dependence, cigarettes, uncomplicated; Z88.5 Allergy status to narcotic agent; Z88.8 Allergy status to other drugs, medicaments and biological substances; Z79.899 Other long term (current) drug therapy

== ENCOUNTER → 2018-07-22 | Outpatient (CLI) | payer MEDICARE ==
--- NOTE | 2018-08-04 23:23 | ECWPNPC ---
PATIENT NAME: KATHRIN DELGADO : 1975 GENDER: MALE VISIT DATE: 07/22/2018 DISCHARGE DATE: 07/22/18 1656 VISIT LOCKED DATE TIME: PHYSICIAN: PRITI CROSS MD RESOURCE: PRITI CROSS MD REASON FOR APPOINTMENT 1. FOLLOW UP/MEDS STUCK IN CONSTRUCTION MAY BE A FEW MINUTES LATE. HISTORY OF PRESENT ILLNESS HISTORY OF PRESENT ILLNESS: PAIN THE PATIENT DESCRIBES THE PAIN... 43 YEAR OLD MALE PATIENT WITH A HISTORY OF CHRONIC LOW BACK PAIN. THE PATIENT DESCRIBES THE PAIN ACHING, BURNING, SORE, AND CONTINUOUS WITH A PAIN SCORE OF 4-10/10 DEPENDING ON PHYSICAL ACTIVITY AND MEDICATION USE. THE PATIENT SAYS HIS PAIN STARTS IN HIS LOW BACK AREA AND RADIATES DOWN HIS LEFT LEG. THE PATIENT HAS A HISTORY OF BACK SURGERIES IN 2003 AND 2011, BUT SAYS THE PAIN HAS PERSISTED. THE PATIENT IS CURRENTLY USING OXYCODONE MDD4 AND HYDROMORPHONE MDD6 TO AID IN PAIN RELIEF. PATIENT DENIES UNEXPLAINABLE WEIGHT LOSS, FEVER, CHILLS, NEW CHANGES ON HIS URINARY OR BOWEL CONTROL. FALL RISK SCREENING: SCREENING :NO FALLS REPORTED IN THE LAST YEAR CURRENT MEDICATIONS TAKING LEVOTHYROXINE SODIUM 125 MCG TABLET 1 TABLET ORALLY ONCE A DAY TAKING OXYCODONE HCL 15 MG TABLET 1 TABLET ORALLY EVERY 6 HRS MDD4 TAKING HYDROMORPHONE HCL 8 MG TABLET DIRECTED ORALLY DIRECTED, NOTES: 8MG 5 X D X 10 [id number] 4 X D X 10 [id number] 3 X D X 10 [id number] 2 X D X 10 [id number] 1 X D X 10 DAYS NOT-TAKING CYCLOBENZAPRINE HCL 10 MG TABLET 1 TABLET NEEDED ORALLY THREE TIMES A DAY NOT-TAKING HYDROMORPHONE HCL 4 MG TABLET DIRECTED ORALLY DIRECTED, NOTES: 4MG TABS TAKE ONE TAB DAILY X 10 DAYS THEN NOT-TAKING HYDROMORPHONE HCL 2 MG TABLET DIRECTED ORALLY DIRECTED, NOTES: 2MG TABS TAKE ONE TABLET DAILY X 10 DAYS THEN NOT-TAKING HYDROMORPHONE HCL 2 MG TABLET DIRECTED ORALLY DIRECTED, NOTES: 2MG TABLETS TAKE 1/2 TABLET DAILY X 10 DAYS THEN STOP NOT-TAKING CLONIDINE HCL 0.1 MG TABLET 1 TABLET BID PRN ORALLY BID PRN FOR WITHDRAWL SYMPTOMS MDD=2 NOT-TAKING DULOXETINE HCL 30 MG CAPSULE DELAYED RELEASE PARTICLES 1 CAPSULE DAILY X 10 DAYS THEN STOP ORALLY DIRECTED MEDICATION LIST REVIEWED AND RECONCILED WITH THE PATIENT PAST MEDICAL HISTORY HYPOTHYROIDISM,DISC DISEASE 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 FATHER - RENAL FAILURE. SOCIAL HISTORY GENERAL: TOBACCO USE ARE YOU A:CURRENT SMOKER ARE YOU INTERESTED IN QUITTING?THINKING ABOUT QUITTING CUTTING DOWN, SOMEDAYS ARE BETTER THAN OTHERS, HAS TRIED THE PATCH AND CHANTIX PREVIOUS QUIT ATTEMPTS?YES, WITHIN THE LAST 6 MONTHS. COUNSELED THE PATIENT ON SMOKING CESSATION, EDUCATION [id number]/20/2019 HOW OFTEN DO YOU SMOKE CIGARETTES?EVERY DAY PATIENT COUNSELED ON THE DANGERS OF TOBACCO USE AND URGED TO QUIT:06/07/2018 OTHERS AT HOME: SPOUSE. DIET: REGULAR. LANGUAGE LANGUAGES SPOKEN:KINYARWANDA NEW PATIENT PAIN DIARY TODAY'S VISITNOTES FROM 0-10, WHAT LEVEL IS YOUR PAIN TODAY?6 RECREATIONAL DRUG USE DRUG USE?YES MARIJUANA, OCCASSIONALLY EXERCISE: WALKS. LEARNING BARRIERS / SPECIAL NEEDS ORIENTED TO PLAN OF CARE: PATIENT, PAIN MANAGEMENT PATIENT, ORIENTED TO PLAN OF CARE: PATIENT, PAIN MANAGEMENT PATIENT. PAIN CLINIC PFS, CLERGY, PUBLIC HEALTH REFERRALS WAS THE PROVIDER NOTIFIED OF ANY PERTINENT INFO?YES HAS THE PATIENT BEEN EDUCATED REGARDING HIS/HER PLAN OF CARE?YES HAS THE PATIENT BEEN EDUCATED REGARDING PAIN, THE RISK FOR PAIN, THE IMPORTANCE OF EFFECTIVE PAIN MANAGEMENT, AND THE PAIN ASSESSMENT PROCESS?YES LATEX QUESTIONNAIRE LATEX ALLERGY : HAVE YOU EVER DEVELOPED ANY TYPE OF REACTION AFTER HANDLING LATEX PRODUCTS SUCH RUBBER GLOVES, CONDOMS, DIAPHRAGMS, BALLOONS, SOCKS, OR UNDERWEAR?NO LATEX ALLERGY : HAVE YOU EVER DEVELOPED ANY TYPE OF REACTION DURING OR AFTER DENTAL APPOINTMENT, VAGINAL/RECTAL EXAMINATION, SURGICAL PROCEDURE, OR ANY OTHER EXPOSURE?NO LATEX RISK : HAVE YOU EVER HAD ANY DIFFICULTY BREATHING OR HIVES AFTER EATING OR HANDLING ANY FRUITS, OR VEGETABLES; SUCH KIWI, BANANAS, STONE FRUITS, OR CHESTNUTSNO LATEX RISK : DO YOU HAVE A PREVIOUS PERSONAL HISTORY OF MORE THAN NINE SURGERIES, SPINA BIFIDA, OR REPEATED CATHERTIZATIONS? NO LATEX RISK : ARE YOU FREQUENTLY EXPOSED TO LATEX PRODUCTS IN YOUR OCCUPATION?NO DATE ASKED : 06/07/2018 CAFFEINE CAFFEINE USE?YES 1 CUP OF COFFEE AND 4 PEPSIS PER DAY ADVANCE DIRECTIVE ADVANCE DIRECTIVE DISCUSSED WITH PATIENT:YES HCP - HERBERT DELGADO BAPTISM [id number] NONE NO SIKHISM BELIEFS THAT WOULD IMPACT HEALTH CARE. MARITAL STATUS: . OCCUPATION: DISABLED. REVIEWED WITH PATIENT 03/05/18 0619 JSREVIEWED WITH PT 07/22/18 4596 BV. HOSPITALIZATION/MAJOR DIAGNOSTIC PROCEDURE SURG RELATED REVIEW OF SYSTEMS REVIEWED BY: PROVIDER: PRITI CROSS MD . CONSTITUTIONAL: ANY CHANGE IN YOUR MEDICAL CONDITION? NO . CHILLS NO . FEVER NO . INFECTION: DO YOU HAVE NEW INFECTIONS? NO . DO YOU HAVE HISTORY OF MRSA? NO . MUSCULOSKELETAL: ANY NEW PATTERNS OF PAIN OR NUMBNESS? NO . GASTROENTEROLOGY: ANY NEW CHANGE IN BOWEL CONTROL? NO . GENITOURINARY: ANY NEW CHANGE IN BLADDER CONTROL? NO . IS THERE A CHANCE YOU COULD BE ? NO . HEMATOLOGY/LYMPH: DO YOU TAKE ANY BLOOD THINNERS? (FOR EXAMPLE- COUMADIN, PLAVIX, AGGRENOX, PLATEL, PRADAXA, OR XARELTO) NO . WHEN WAS YOUR LAST DOSE? DATE: TIME: . NEUROLOGY: HAVE YOU FALLEN IN THE PAST 12 MONTHS? PT DENIES ANY FALLS SINCE LAST VISIT WITH US, STATES PREVIOUS FALLS HAVE BEEN DOCUMENTED AT PAST VISIT. . ANY NEW EXTREMITY NUMBNESS OR WEAKNESS? NO . CARDIOLOGY: DO YOU HAVE A PACEMAKER OR DEFIBRILLATOR? NO . RESPIRATORY: HAVE YOU BEEN SICK IN THE PAST WEEK? NO . FEVER NO . FLU LIKE SYMPTOMS? NO . COUGH NO . INTEGUMENTARY: DO YOU HAVE ANY RASHES OR OPEN SORES? NO . ALLERGIC/IMMUNO: ARE YOU ALLERGIC TO IV DYE? NO . ANY NEW ALLERGIES? NO . PSYCHIATRIC: DO YOU HAVE THOUGHTS OF HURTING YOURSELF OR SOMEONE ELSE? NO . ARE YOU ABUSED, NEGLECTED, OR IN AN UNSAFE ENVIRONMENT? NO . ENDOCRINOLOGY: ARE YOU DIABETIC? NO . OTHER: DO YOU NEED ANY PRESCRIPTIONS? YES, HYDROMORPHONE 8MG AND OXYCODONE 15MG . IF YES, PLEASE LIST: ____ . ANY NEW PROBLEMS WITH YOUR MEDICATIONS? NO . WHEN DID YOU LAST EAT? ____ . WHEN DID YOU LAST DRINK? ____ . WHAT DID YOU LAST DRINK? ____ . NAME OF PERSON DRIVING YOU HOME? ____ . DO YOU HAVE ANY OTHER QUESTIONS OR CONCERNS YES, WOULD LIKE TO DISCUSS HAVING REFERRAL RE-SENT TO [facility] . VITAL SIGNS WT 235.0 LBS, HT 68 IN, BMI 35.73 INDEX, BP 126/68 MM HG, HR 93 /MIN, RR 18 /MIN, TEMP 97.0 F, OXYGEN SAT % 99%, NA INITIALS AW 1507, REVIEWED BY: BV. EXAMINATION GENERAL EXAMINATION: PATIENT IS ALERT O X 3 AND COOPERATIVE. TENDERNESS IN THE LOW BACK AREA. PATIENT IS LIMPING FROM HIS LEFT LEG. LEFT LEG IS WEAKER AT EXTENSION AND FLEXION. STRAIGHT LEG RAISE OF THE LEFT LEG IS POSITIVE AT 15 DEGREES FOR RADICULOPATHY. PRESENCE OF TRIGGER POINTS AND BANDS OF TISSUE WITH RESTRICTION OF MOVEMENT OF THE BACK. MRI OF THE LUMBAR SPINE DONE ON 07/25/2011 SHOWS STENOSIS AND POST LAMINECTOMY CHANGES. ASSESSMENTS MYALGIA, OTHER SITE - M79.18 (PRIMARY) LUMBAR POST-LAMINECTOMY SYNDROME - M96.1 TREATMENT MYALGIA, OTHER SITE CLINICAL NOTES: WE DISCUSSED SEVERAL ISSUES WITH MR. DELGADO'S PAIN MANAGEMENT CASE. DUE THE TRIGGER POINTS, BANDS OF TISSUE, AND RESTRICTION OF MOVEMENT, I WOULD LIKE TO MOVE FORWARD WITH A TRIGGER POINT INJECTION AT THIS TIME. WE DISCUSSED THE BENEFITS, RISKS, AND ALTERNATIVES OF THE INJECTION AND THE PATIENT WOULD LIKE TO PROCEED. I DISCUSSED TRYING A LUMBAR EPIDURAL STEROID INJECTION, BUT THE PATIENT EXPRESSED THAT HE HAS HAD A BAD PRIOR EXPERIENCE SO HE IS NOT INTERESTED AT THIS TIME. THE PATIENT MAY ALSO CONSIDER A DCS TRIAL IN THE FUTURE. WE HAD A LONG DISCUSSION REGARDING HIS MEDICATIONS. THE PATIENT EXPRESSED THAT HE HAS TRANSPORTATION ISSUES BECAUSE HE LIVES A SIGNIFICANT DISTANCE AWAY AND IT WOULD BE EASIER FOR HIM TO MAKE APPOINTMENTS CLOSER TO HIS HOME. THE PATIENT EXPRESSED THAT ALSO DUE TO THIS HE IS UNABLE TO COME TO OUR FACILITY WITH SHORT NOTICE AND NEEDS TIME TO ARRANGE FOR TRANSPORTATION. I WILL BE REFERRING HIM TO A PAIN MANAGEMENT FACILITY IN [place]. I WILL REFILL THE PATIENT'S OXYCODONE AND HE MAY USE UP TO 6 TABLETS PER DAY FOR THE SOMATIC PAIN. THE PATIENT WILL STOP USING THE HYDROMORPHONE. INSTRUCTIONS WERE GIVEN, QUESTIONS WERE ANSWERED, PATIENT REPORTS UNDERSTANDING AND AGREES WITH THE PLAN. I, TREY VILLATORO, DOCUMENTED THE ABOVE INFORMATION ACTING A SCRIBE FOR DR. CROSS. I HAVE REVIEWED THE ABOVE DOCUMENT, WRITTEN BY TREY MOROCHO AND I VERIFY THAT IT IS ACCURATE. . OTHERS REFILL OXYCODONE HCL TABLET, 15 MG, 1 TABLET, ORALLY FOR PAIN, EVERY 4 HRS MDD6, 15 DAYS, 90, REFILLS 0 PREVENTIVE MEDICINE PAIN CLINIC TEACHING: PROCEDURE TEACHING PT GIVEN WRITTEN AND VERBAL PRE-PROCEDURE INSTRUCTIONS. PT VERBALIZES UNDERSTANDING OF ALL INSTRUCTIONS, STATING HE HAS HAD THIS PROCEDURE BEFORE. SHAREE CHOE 07/22/2018 4:56:11 PM > . PROCEDURE CODES FA211 ESTABILISHED PATIENT [facility] F[facility] CHARGE G8427 CURRENT MEDS W/DOSAGES DOCUMENTED G8730 PAIN ASSESS POS TOOL F/U PLAN DOC DISPOSITION & COMMUNICATION FOLLOW UP 3 WEEKS ELECTRONICALLY SIGNED BY PRITI CROSS MD, ON 08/04/2018 AT 06:30 PM EDT DISCLAIMER : THIS IS A VISIT SUMMARY EXTRACTED FROM THE [employer] CHART. IT IS NOT A COPY OF THE [employer] PROGRESS NOTE. BRIDGER
== END ==
LOC: M PAIN 15:00
PROVIDERS: ATTEND Anesthesiology
DX: M79.18 Myalgia, other site (principal); M96.1 Postlaminectomy syndrome, not elsewhere classified; E03.9 Hypothyroidism, unspecified; Z98.1 Arthrodesis status; F17.210 Nicotine dependence, cigarettes, uncomplicated; Z79.891 Long term (current) use of opiate analgesic; Z79.899 Other long term (current) drug therapy; Z88.5 Allergy status to narcotic agent; Z88.8 Allergy status to other drugs, medicaments and biological substances

== ENCOUNTER → 2018-08-06 | Outpatient (CLI) | payer MEDICARE ==
[~2018-08-06] MED LIST changes: +BUPIVACAINE HCL 0.25% 10 ML VIAL As Ordered ONE; +BUPIVACAINE HCL 0.25% 30 ML VIAL As Ordered ONE; +TRIAMCINOLONE ACETONIDE SUSP 40 MG/ML VIAL (J3301) As Ordered ONE; +diazePAM 5 MG TAB As Ordered ONE; +oxyCODONE 5MG TAB As Ordered ONE
--- NOTE | 2018-08-16 00:26 | ECWPNPC ---
PATIENT NAME: KATHRIN DELGADO : 1975 GENDER: MALE VISIT DATE: 08/06/2018 DISCHARGE DATE: 08/06/18 1031 VISIT LOCKED DATE TIME: PHYSICIAN: PRITI CROSS MD RESOURCE: PRITI CROSS MD REASON FOR APPOINTMENT 1. TPI HISTORY OF PRESENT ILLNESS HISTORY OF PRESENT ILLNESS: PAIN THE PATIENT DESCRIBES THE PAIN... FALL RISK SCREENING: SCREENING :NO FALLS REPORTED IN THE LAST YEAR CURRENT MEDICATIONS TAKING LEVOTHYROXINE SODIUM 125 MCG TABLET 1 TABLET ORALLY ONCE A DAY, NOTES: 08/05/18 AM TAKING HYDROMORPHONE HCL 8 MG TABLET DIRECTED ORALLY FOR PAIN EVERY 4 HOURS NEEDED MDD5, NOTES: 8MG 5 X D X 10 [id number] 4 X D X 10 [id number] 3 X D X 10 [id number] 2 X D X 10 [id number] 1 X D X 10 DAYS; 0600 NOT-TAKING OXYCODONE HCL 15 MG TABLET 1 TABLET ORALLY FOR PAIN EVERY 4 HRS MDD6 NOT-TAKING CYCLOBENZAPRINE HCL 10 MG TABLET 1 TABLET NEEDED ORALLY THREE TIMES A DAY NOT-TAKING HYDROMORPHONE HCL 4 MG TABLET DIRECTED ORALLY DIRECTED, NOTES: 4MG TABS TAKE ONE TAB DAILY X 10 DAYS THEN NOT-TAKING HYDROMORPHONE HCL 2 MG TABLET DIRECTED ORALLY DIRECTED, NOTES: 2MG TABS TAKE ONE TABLET DAILY X 10 DAYS THEN NOT-TAKING HYDROMORPHONE HCL 2 MG TABLET DIRECTED ORALLY DIRECTED, NOTES: 2MG TABLETS TAKE 1/2 TABLET DAILY X 10 DAYS THEN STOP NOT-TAKING CLONIDINE HCL 0.1 MG TABLET 1 TABLET BID PRN ORALLY BID PRN FOR WITHDRAWL SYMPTOMS MDD=2 NOT-TAKING DULOXETINE HCL 30 MG CAPSULE DELAYED RELEASE PARTICLES 1 CAPSULE DAILY X 10 DAYS THEN STOP ORALLY DIRECTED MEDICATION LIST REVIEWED AND RECONCILED WITH THE PATIENT PAST MEDICAL HISTORY HYPOTHYROIDISM,DISC DISEASE 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 FATHER - RENAL FAILURE. SOCIAL HISTORY GENERAL: TOBACCO USE ARE YOU A:CURRENT SMOKER ARE YOU INTERESTED IN QUITTING?THINKING ABOUT QUITTING CUTTING DOWN, SOMEDAYS ARE BETTER THAN OTHERS, HAS TRIED THE PATCH AND CHANTIX. PREVIOUS QUIT ATTEMPTS?YES, WITHIN THE LAST 6 MONTHS. COUNSELED THE PATIENT ON SMOKING CESSATION, EDUCATION [id number]/02/2019 HOW OFTEN DO YOU SMOKE CIGARETTES?EVERY DAY PATIENT COUNSELED ON THE DANGERS OF TOBACCO USE AND URGED TO QUIT:08/06/2018 OTHERS AT HOME: SPOUSE. DIET: REGULAR. LANGUAGE LANGUAGES SPOKEN:ANGUILLAN NEW PATIENT PAIN DIARY TODAY'S VISITNOTES FROM 0-10, WHAT LEVEL IS YOUR PAIN TODAY?6 RECREATIONAL DRUG USE DRUG USE?YES MARIJUANA, OCCASSIONALLY EXERCISE: WALKS. LEARNING BARRIERS / SPECIAL NEEDS ORIENTED TO PLAN OF CARE: PATIENT, PAIN MANAGEMENT PATIENT, ORIENTED TO PLAN OF CARE: PATIENT, PAIN MANAGEMENT PATIENT. PAIN CLINIC PFS, CLERGY, PUBLIC HEALTH REFERRALS WAS THE PROVIDER NOTIFIED OF ANY PERTINENT INFO?YES HAS THE PATIENT BEEN EDUCATED REGARDING HIS/HER PLAN OF CARE?YES HAS THE PATIENT BEEN EDUCATED REGARDING PAIN, THE RISK FOR PAIN, THE IMPORTANCE OF EFFECTIVE PAIN MANAGEMENT, AND THE PAIN ASSESSMENT PROCESS?YES LATEX QUESTIONNAIRE LATEX ALLERGY : HAVE YOU EVER DEVELOPED ANY TYPE OF REACTION AFTER HANDLING LATEX PRODUCTS SUCH RUBBER GLOVES, CONDOMS, DIAPHRAGMS, BALLOONS, SOCKS, OR UNDERWEAR?NO LATEX ALLERGY : HAVE YOU EVER DEVELOPED ANY TYPE OF REACTION DURING OR AFTER DENTAL APPOINTMENT, VAGINAL/RECTAL EXAMINATION, SURGICAL PROCEDURE, OR ANY OTHER EXPOSURE?NO LATEX RISK : HAVE YOU EVER HAD ANY DIFFICULTY BREATHING OR HIVES AFTER EATING OR HANDLING ANY FRUITS, OR VEGETABLES; SUCH KIWI, BANANAS, STONE FRUITS, OR CHESTNUTSNO LATEX RISK : DO YOU HAVE A PREVIOUS PERSONAL HISTORY OF MORE THAN NINE SURGERIES, SPINA BIFIDA, OR REPEATED CATHERTIZATIONS? NO LATEX RISK : ARE YOU FREQUENTLY EXPOSED TO LATEX PRODUCTS IN YOUR OCCUPATION?NO DATE ASKED : 06/07/2018 CAFFEINE CAFFEINE USE?YES 1 CUP OF COFFEE AND 4 PEPSIS PER DAY ADVANCE DIRECTIVE ADVANCE DIRECTIVE DISCUSSED WITH PATIENT:YES HCP - HERBERT DELGADO EPISCOPALIAN [id number] NONE NO CAODAISM BELIEFS THAT WOULD IMPACT HEALTH CARE. MARITAL STATUS: . OCCUPATION: DISABLED. REVIEWED WITH PATIENT 03/05/18 0912 JSREVIEWED WITH PT 07/22/18 0395 BVREVIEWED WITH PATIENT 08/06/18 0896 JS. HOSPITALIZATION/MAJOR DIAGNOSTIC PROCEDURE SURG RELATED REVIEW OF SYSTEMS REVIEWED BY: PROVIDER: . CONSTITUTIONAL: ANY CHANGE IN YOUR MEDICAL CONDITION? NO . CHILLS NO . FEVER NO . INFECTION: DO YOU HAVE NEW INFECTIONS? NO . DO YOU HAVE HISTORY OF MRSA? NO . MUSCULOSKELETAL: ANY NEW PATTERNS OF PAIN OR NUMBNESS? NO . GASTROENTEROLOGY: ANY NEW CHANGE IN BOWEL CONTROL? NO . GENITOURINARY: ANY NEW CHANGE IN BLADDER CONTROL? NO . IS THERE A CHANCE YOU COULD BE ? NO . HEMATOLOGY/LYMPH: DO YOU TAKE ANY BLOOD THINNERS? (FOR EXAMPLE- COUMADIN, PLAVIX, AGGRENOX, PLATEL, PRADAXA, OR XARELTO) NO . WHEN WAS YOUR LAST DOSE? DATE: TIME: . NEUROLOGY: HAVE YOU FALLEN IN THE PAST 12 MONTHS? YES, MONTHS AGO . ANY NEW EXTREMITY NUMBNESS OR WEAKNESS? NO . CARDIOLOGY: DO YOU HAVE A PACEMAKER OR DEFIBRILLATOR? NO . RESPIRATORY: HAVE YOU BEEN SICK IN THE PAST WEEK? NO . FEVER NO . FLU LIKE SYMPTOMS? NO . COUGH NO . INTEGUMENTARY: DO YOU HAVE ANY RASHES OR OPEN SORES? NO . ALLERGIC/IMMUNO: ARE YOU ALLERGIC TO IV DYE? NO . ANY NEW ALLERGIES? NO . PSYCHIATRIC: DO YOU HAVE THOUGHTS OF HURTING YOURSELF OR SOMEONE ELSE? NO . ARE YOU ABUSED, NEGLECTED, OR IN AN UNSAFE ENVIRONMENT? NO . ENDOCRINOLOGY: ARE YOU DIABETIC? NO . OTHER: DO YOU NEED ANY PRESCRIPTIONS? NO . IF YES, PLEASE LIST: ____ . ANY NEW PROBLEMS WITH YOUR MEDICATIONS? NO . WHEN DID YOU LAST EAT? SUNDAY 5PM . WHEN DID YOU LAST DRINK? 08/06 6AM . WHAT DID YOU LAST DRINK? WATER . NAME OF PERSON DRIVING YOU HOME? HERBERT . DO YOU HAVE ANY OTHER QUESTIONS OR CONCERNS NONOTIFIED DR. CROSS AT 0915 THAT PATIENT TOOK HIS HOME MEDICATION OF DILAUDID 8 MG THIS MORNING AT 0600 BUT THAT THE PATIENT WOULD STILL LIKE SOME PRE-SEDATE MEDICATION. PRESEDATE MEDICATIONS ORDERED BY DR. CROSS FOLLOWING DISCUSSION WITH THE PATIENT. 08/06/18 0936 [place] . VITAL SIGNS WT 226.2 LBS, HT 68 IN, BMI 34.39 INDEX, BP 135/69 MM HG, HR 81 /MIN, RR 18 /MIN, TEMP 96.5 F, OXYGEN SAT % 98%, SAFE IN ENV? (Y/N) YES, NA INITIALS SC 08:43, REVIEWED BY: [place]. ASSESSMENTS MYALGIA, OTHER SITE - M79.18 (PRIMARY) PROCEDURES PN TRIGGER POINT INJECTION WITH STEROIDS PRE PROCEDURE DIAGNOSIS 1. MYALGIA 2. PAIN AT BILATERAL NECK AREA AND LEFT LOW BACK AREA POST PROCEDURE DIAGNOSIS 1. MYALGIA 2. PAIN AT BILATERAL NECK AREA AND LEFT LOW BACK AREA PROCEDURE TRIGGER POINT INJECTION AT BILATERAL NECK AREA AND LEFT LOW BACK AREA SURGEON DR. PRITI CROSS STREET LIGHT SERVICER NONE ANESTHESIA LOCAL PRE PROCEDURE NOTE THE PATIENT HAS A HISTORY OF CHRONIC PAIN AT THE RIGHT AND LEFT NECK AREA AND LEFT LOW BACK AREA. I EVALUATE THE PATIENT AND REVIEWED THE CHART. THERE IS EVIDENCE OF BANDS OF TISSUE WITH RESTRICTION OF MOVEMENT AND PRESENCE OF TRIGGER POINT AT THE AFFECTED AREA. I WENT OVER THE RISKS, ALTERNATIVES, AND BENEFITS ASSOCIATED WITH THIS PROCEDURE. THE PATIENT WOULD LIKE TO PROCEED AND GIVE CONSENT TO PERFORMED THE PROCEDURE. THE PATIENT DENIES UNEXPLAINABLE WEIGHT LOSS, FEVER, CHILLS, OR NEW CHANGES IN URINARY OR BOWEL CONTROL DESCRIPTION OF PROCEDURE THE PATIENT WAS BROUGHT TO THE PROCEDURE ROOM AND PLACED IN THE SITTING POSITION. THE AREA WAS CLEANED WITH ALCOHOL. THE PROCEDURE WAS DONE USING ASEPTIC STERILE TECHNIQUE. I CHECKED LATERALITY AND THE LEVEL WHERE THE PROCEDURE WAS GOING TO BE PERFORMED WITH THE PATIENT AND THE SUPPORTING STAFF AT THE MOMENT OF THE TIME OUT IN THE PROCEDURE ROOM. USING A 25-GAUGE NEEDLE, TRIGGER POINTS WERE INJECTED AT THE RIGHT AND LEFT NECK AREA AND LEFT LOW BACK AREA WITH A TOTAL OF 40 ML OF BUPIVACAINE 0.25% AND KENALOG 40 MG. THERE WAS NO EVIDENCE OF BLOOD, PARESTHESIA OR CEREBROSPINAL FLUID DURING THE PROCEDURE. THE PATIENT WAS SENT TO THE RECOVERY ROOM. THE PATIENT WAS MOVING THE EXTREMITIES AND DOING WELL. THERE WAS NO COMPLICATION DURING THE PROCEDURE POST PROCEDURE NOTE THE PATIENT WILL BE SEEN IN A FOLLOW UP IN THE NEXT FEW WEEKS. INSTRUCTIONS WERE GIVEN, QUESTIONS WERE ANSWERED, AND THE PATIENT EXPRESSED UNDERSTANDING AND AGREES WITH THE PLAN. I, TREY VILLATORO, DOCUMENTED THE ABOVE INFORMATION ACTING A SCRIBE FOR DR. CROSS. I HAVE REVIEWED THE ABOVE DOCUMENT, WRITTEN BY TREY UNGERIBJeffrey AND I VERIFY THAT IT IS ACCURATE. PROCEDURE CODES 63371 INJECT TRIGGER POINTS 3/> DISPOSITION & COMMUNICATION FOLLOW UP 3 WEEKS ELECTRONICALLY SIGNED BY PRITI CROSS MD, MD ON 08/15/2018 AT 01:45 PM EDT DISCLAIMER : THIS IS A VISIT SUMMARY EXTRACTED FROM THE [employer] CHART. IT IS NOT A COPY OF THE [employer] PROGRESS NOTE. [facility]
== END ==
LOC: M PAIN 08:30
PROVIDERS: ATTEND Anesthesiology
DX: M79.18 Myalgia, other site (principal); E03.9 Hypothyroidism, unspecified; Z98.1 Arthrodesis status; F17.210 Nicotine dependence, cigarettes, uncomplicated; Z79.891 Long term (current) use of opiate analgesic; Z79.899 Other long term (current) drug therapy; Z88.5 Allergy status to narcotic agent; Z88.8 Allergy status to other drugs, medicaments and biological substances
CPT/HCPCS: 20553; J3301

== ENCOUNTER → 2018-08-23 | Outpatient (CLI) | payer MEDICARE ==
[~2018-08-23] MED LIST changes: -BUPIVACAINE HCL 0.25% 10 ML VIAL As Ordered ONE; -BUPIVACAINE HCL 0.25% 30 ML VIAL As Ordered ONE; -TRIAMCINOLONE ACETONIDE SUSP 40 MG/ML VIAL (J3301) As Ordered ONE; -diazePAM 5 MG TAB As Ordered ONE; -oxyCODONE 5MG TAB As Ordered ONE
--- NOTE | 2018-09-03 00:30 | ECWPNPC ---
PATIENT NAME: KATHRIN DELGADO : 1975 GENDER: MALE VISIT DATE: 08/23/2018 DISCHARGE DATE: 08/23/18 1553 VISIT LOCKED DATE TIME: PHYSICIAN: PRITI CROSS MD RESOURCE: PRITI CROSS MD REASON FOR APPOINTMENT 1. POST TPI HISTORY OF PRESENT ILLNESS HISTORY OF PRESENT ILLNESS: PAIN THE PATIENT DESCRIBES THE PAIN... 43 YEAR OLD MALE PATIENT WITH A HISTORY OF CHRONIC LOW BACK AND LEG PAIN. THE PATIENT DESCRIBES THE PAIN ACHING, SORE, DAILY, AND CONTINUOUS WITH A PAIN SCORE OF 6-9/10 DEPENDING ON PHYSICAL ACTIVITY. THE PATIENT SAYS THE PAIN BEGINS IN HIS LOW BACK AND RADIATES DOWN HIS LEGS, BUT MOSTLY HIS LEFT LEG IS AFFECTED. THE PATIENT SAYS THERE IS A LOT OF PAIN IN HIS LEFT FOOT WELL AND BELIEVES IT IS DUE TO HIS LOW BACK PAIN. THE PATIENT STATES HE HAD BACK SURGERY ON 11/24/2011. PATIENT DENIES UNEXPLAINABLE WEIGHT LOSS, FEVER, CHILLS, NEW CHANGES ON HIS URINARY OR BOWEL CONTROL. FALL RISK SCREENING: SCREENING :NO FALLS REPORTED IN THE LAST YEAR CURRENT MEDICATIONS TAKING LEVOTHYROXINE SODIUM 125 MCG TABLET 1 TABLET ORALLY ONCE A DAY TAKING HYDROMORPHONE HCL 8 MG TABLET DIRECTED ORALLY FOR PAIN EVERY 4 HOURS NEEDED MDD5 NOT-TAKING OXYCODONE HCL 15 MG TABLET 1 TABLET ORALLY FOR PAIN EVERY 4 HRS MDD6 NOT-TAKING CYCLOBENZAPRINE HCL 10 MG TABLET 1 TABLET NEEDED ORALLY THREE TIMES A DAY NOT-TAKING HYDROMORPHONE HCL 4 MG TABLET DIRECTED ORALLY DIRECTED, NOTES: 4MG TABS TAKE ONE TAB DAILY X 10 DAYS THEN NOT-TAKING HYDROMORPHONE HCL 2 MG TABLET DIRECTED ORALLY DIRECTED, NOTES: 2MG TABS TAKE ONE TABLET DAILY X 10 DAYS THEN NOT-TAKING HYDROMORPHONE HCL 2 MG TABLET DIRECTED ORALLY DIRECTED, NOTES: 2MG TABLETS TAKE 1/2 TABLET DAILY X 10 DAYS THEN STOP NOT-TAKING CLONIDINE HCL 0.1 MG TABLET 1 TABLET BID PRN ORALLY BID PRN FOR WITHDRAWL SYMPTOMS MDD=2 NOT-TAKING DULOXETINE HCL 30 MG CAPSULE DELAYED RELEASE PARTICLES 1 CAPSULE DAILY X 10 DAYS THEN STOP ORALLY DIRECTED MEDICATION LIST REVIEWED AND RECONCILED WITH THE PATIENT PAST MEDICAL HISTORY HYPOTHYROIDISM,DISC DISEASE 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 FATHER - RENAL FAILURE. SOCIAL HISTORY GENERAL: TOBACCO USE ARE YOU A:CURRENT SMOKER ARE YOU INTERESTED IN QUITTING?THINKING ABOUT QUITTING CUTTING DOWN, SOMEDAYS ARE BETTER THAN OTHERS, HAS TRIED THE PATCH AND CHANTIX. PREVIOUS QUIT ATTEMPTS?YES, WITHIN THE LAST 6 MONTHS. COUNSELED THE PATIENT ON SMOKING CESSATION, EDUCATION [id number]/02/2019 HOW OFTEN DO YOU SMOKE CIGARETTES?EVERY DAY PATIENT COUNSELED ON THE DANGERS OF TOBACCO USE AND URGED TO QUIT:08/06/2018 OTHERS AT HOME: SPOUSE. DIET: REGULAR. LANGUAGE LANGUAGES SPOKEN:BURUNDIAN NEW PATIENT PAIN DIARY TODAY'S VISITNOTES FROM 0-10, WHAT LEVEL IS YOUR PAIN TODAY?6 RECREATIONAL DRUG USE DRUG USE?YES MARIJUANA, OCCASSIONALLY EXERCISE: WALKS. LEARNING BARRIERS / SPECIAL NEEDS ORIENTED TO PLAN OF CARE: PATIENT, PAIN MANAGEMENT PATIENT, ORIENTED TO PLAN OF CARE: PATIENT, PAIN MANAGEMENT PATIENT. PAIN CLINIC PFS, CLERGY, PUBLIC HEALTH REFERRALS WAS THE PROVIDER NOTIFIED OF ANY PERTINENT INFO?YES HAS THE PATIENT BEEN EDUCATED REGARDING HIS/HER PLAN OF CARE?YES HAS THE PATIENT BEEN EDUCATED REGARDING PAIN, THE RISK FOR PAIN, THE IMPORTANCE OF EFFECTIVE PAIN MANAGEMENT, AND THE PAIN ASSESSMENT PROCESS?YES LATEX QUESTIONNAIRE LATEX ALLERGY : HAVE YOU EVER DEVELOPED ANY TYPE OF REACTION AFTER HANDLING LATEX PRODUCTS SUCH RUBBER GLOVES, CONDOMS, DIAPHRAGMS, BALLOONS, SOCKS, OR UNDERWEAR?NO LATEX ALLERGY : HAVE YOU EVER DEVELOPED ANY TYPE OF REACTION DURING OR AFTER DENTAL APPOINTMENT, VAGINAL/RECTAL EXAMINATION, SURGICAL PROCEDURE, OR ANY OTHER EXPOSURE?NO LATEX RISK : HAVE YOU EVER HAD ANY DIFFICULTY BREATHING OR HIVES AFTER EATING OR HANDLING ANY FRUITS, OR VEGETABLES; SUCH KIWI, BANANAS, STONE FRUITS, OR CHESTNUTSNO LATEX RISK : DO YOU HAVE A PREVIOUS PERSONAL HISTORY OF MORE THAN NINE SURGERIES, SPINA BIFIDA, OR REPEATED CATHERIZATIONS? NO LATEX RISK : ARE YOU FREQUENTLY EXPOSED TO LATEX PRODUCTS IN YOUR OCCUPATION?NO DATE ASKED : 06/07/2018 CAFFEINE CAFFEINE USE?YES 1 CUP OF COFFEE AND 4 PEPSIS PER DAY ADVANCE DIRECTIVE ADVANCE DIRECTIVE DISCUSSED WITH PATIENT:YES HCP - HERBERT DELGADO MORMON [id number] NONE NO MANDAEISM BELIEFS THAT WOULD IMPACT HEALTH CARE. MARITAL STATUS: . OCCUPATION: DISABLED. REVIEWED WITH PATIENT 03/05/18 0912 JSREVIEWED WITH PT 07/22/18 1515 BVREVIEWED WITH PATIENT 08/06/18 0850 JSREVIEWED WITH PT 08/23/18 1505 BV. HOSPITALIZATION/MAJOR DIAGNOSTIC PROCEDURE SURG RELATED REVIEW OF SYSTEMS REVIEWED BY: PROVIDER: PRITI CROSS MD . CONSTITUTIONAL: ANY CHANGE IN YOUR MEDICAL CONDITION? NO . CHILLS NO . FEVER NO . INFECTION: DO YOU HAVE NEW INFECTIONS? NO . DO YOU HAVE HISTORY OF MRSA? NO . MUSCULOSKELETAL: ANY NEW PATTERNS OF PAIN OR NUMBNESS? YES PT REPORTS INCREASED NERVE PAIN IN LEFT FOOT OVER THE PAST 2 WEEKS. . GASTROENTEROLOGY: ANY NEW CHANGE IN BOWEL CONTROL? NO . GENITOURINARY: ANY NEW CHANGE IN BLADDER CONTROL? NO . IS THERE A CHANCE YOU COULD BE ? NO . HEMATOLOGY/LYMPH: DO YOU TAKE ANY BLOOD THINNERS? (FOR EXAMPLE- COUMADIN, PLAVIX, AGGRENOX, PLATEL, PRADAXA, OR XARELTO) NO . WHEN WAS YOUR LAST DOSE? DATE: TIME: . NEUROLOGY: HAVE YOU FALLEN IN THE PAST 12 MONTHS? NO . ANY NEW EXTREMITY NUMBNESS OR WEAKNESS? NO . CARDIOLOGY: DO YOU HAVE A PACEMAKER OR DEFIBRILLATOR? NO . RESPIRATORY: HAVE YOU BEEN SICK IN THE PAST WEEK? NO . FEVER NO . FLU LIKE SYMPTOMS? NO . COUGH NO . INTEGUMENTARY: DO YOU HAVE ANY RASHES OR OPEN SORES? NO . ALLERGIC/IMMUNO: ARE YOU ALLERGIC TO IV DYE? NO . ANY NEW ALLERGIES? NO . PSYCHIATRIC: DO YOU HAVE THOUGHTS OF HURTING YOURSELF OR SOMEONE ELSE? NO . ARE YOU ABUSED, NEGLECTED, OR IN AN UNSAFE ENVIRONMENT? NO . ENDOCRINOLOGY: ARE YOU DIABETIC? NO . OTHER: DO YOU NEED ANY PRESCRIPTIONS? NO . IF YES, PLEASE LIST: ____ . ANY NEW PROBLEMS WITH YOUR MEDICATIONS? NO . WHEN DID YOU LAST EAT? ____ . WHEN DID YOU LAST DRINK? ____ . WHAT DID YOU LAST DRINK? ____ . NAME OF PERSON DRIVING YOU HOME? ____ . DO YOU HAVE ANY OTHER QUESTIONS OR CONCERNS NO . VITAL SIGNS WT 226 LBS, HT 68 IN, BMI 34.36 INDEX, BP 135/75 MM HG, HR 63 /MIN, RR 18 /MIN, TEMP 97.3 F, OXYGEN SAT % 93%, REVIEWED BY: BV. EXAMINATION GENERAL EXAMINATION: PATIENT IS ALERT O X 3 AND COOPERATIVE. STRAIGHT LEG RAISES OF BOTH LEGS CAUSES DISCOMFORT. LEFT LEG IS WEAKER AT EXTENSION AND FLEXION. MRI OF THE LUMBAR SPINE DONE ON 07/25/2011 SHOWS A DISC PROTRUSION. 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 DELGADO'S PAIN MANAGEMENT CASE. DUE TO THE PAIN AND DISCOMFORT IN THE LOW BACK AND DOWN THE PATIENT'S LEG, I AM ORDERING FOR A LUMBAR MRI WITH AND WITHOUT CONTRAST TO BE DONE IN ORDER TO FIND WHAT IS THE CAUSE OF THE PATIENT'S PAIN. PATIENT IS REQUESTING FOR AN UPDATE ON HIS REFERRAL STATUS TO [facility]. I WILL START THE PATIENT ON CYMBALTA 30 MG 1 TABLET DAILY WITH FOOD TO HELP WITH PAIN RELIEF. PILL COUNTING WILL BE PERFORMED TODAY. I AM REFERRING THE PATIENT TO A SEWING MACHINE OPERATOR PLASTIC ZIPPER DUE TO SEVERE PAIN IN HIS PLANTAR AREA. THE PATIENT WILL FOLLOW UP IN SEVERAL WEEKS. INSTRUCTIONS WERE GIVEN, QUESTIONS WERE ANSWERED, PATIENT REPORTS UNDERSTANDING AND AGREES WITH THE PLAN. I, RACHELLE JENNINGS, DOCUMENTED THE ABOVE INFORMATION ACTING A SCRIBE FOR DR. CROSS. I HAVE REVIEWED THE ABOVE DOCUMENT, WRITTEN BY RACHELLE MOROCHO AND I VERIFY THAT IT IS ACCURATE. . OTHERS REFILL HYDROMORPHONE HCL TABLET, 8 MG, DIRECTED, ORALLY FOR PAIN, EVERY 4 HOURS NEEDED MDD5, 15 DAYS, 75, REFILLS 0 REFILL DULOXETINE HCL CAPSULE DELAYED RELEASE PARTICLES, 30 MG, 1 CAPSULE DAILY, ORALLY WITH FOOD, DIRECTED, 30 DAYS, 30, REFILLS 0 PREVENTIVE MEDICINE PAIN CLINIC TEACHING: MEDICATIONS PT DECLINES INFO ON CYMBALTA, STATES HE HAS BEEN ON MEDICATION BEFORE SHAREE CHOE 08/23/2018 3:53:01 PM > . PROCEDURE CODES FA211 ESTABILISHED PATIENT [facility] FACILITY CHARGE G8427 CURRENT MEDS W/DOSAGES DOCUMENTED G8730 PAIN ASSESS POS TOOL F/U PLAN DOC DISPOSITION & COMMUNICATION FOLLOW UP 4-6 WEEKS ELECTRONICALLY SIGNED BY PRITI CROSS MD, MD ON 09/02/2018 AT 04:23 PM EDT DISCLAIMER : THIS IS A VISIT SUMMARY EXTRACTED FROM THE [employer] CHART. IT IS NOT A COPY OF THE [employer] PROGRESS NOTE. [place]
== END ==
LOC: M PAIN 15:00
PROVIDERS: ATTEND Anesthesiology
DX: M96.1 Postlaminectomy syndrome, not elsewhere classified (principal); M51.16 Intervertebral disc disorders with radiculopathy, lumbar region; M51.17 Intervertebral disc disorders with radiculopathy, lumbosacral region; E03.9 Hypothyroidism, unspecified; F17.210 Nicotine dependence, cigarettes, uncomplicated; Z79.899 Other long term (current) drug therapy; Z88.5 Allergy status to narcotic agent; Z88.8 Allergy status to other drugs, medicaments and biological substances

== ENCOUNTER → 2018-10-24 | Outpatient (CLI) | payer MEDICARE ==
--- NOTE | 2018-11-09 01:00 | ECWPNPC ---
PATIENT NAME: KATHRIN DELGADO : 1975 GENDER: MALE VISIT DATE: 10/24/2018 DISCHARGE DATE: 10/24/18 1725 VISIT LOCKED DATE TIME: PHYSICIAN: PRITI CROSS MD RESOURCE: PRITI CROSS MD REASON FOR APPOINTMENT 1. LOW BACK/NECK/LEG PAIN HISTORY OF PRESENT ILLNESS HISTORY OF PRESENT ILLNESS: PAIN THE PATIENT DESCRIBES THE PAIN... 43 YEAR OLD MALE PATIENT WITH A HISTORY OF CHRONIC LOW BACK, NECK AND LEG PAIN. THE PATIENT DESCRIBES THE PAIN ACHING, BURNING, SORE, TENDER, DAILY, AND CONTINUOUS WITH A PAIN SCORE OF 4-10/10 DEPENDING ON PHYSICAL ACTIVITY. THE PATIENT STATES THE PAIN IN HIS LOW BACK IS NOT CURRENTLY BOTHERING HIM MUCH. THE PATIENT IS USING HYDROMORPHONE 5 TIMES A DAY TO HELP WITH PAIN RELIEF BUT WOULD LIKE TO CHANGE TO OXYCODONE. THE PATIENT SAYS HE HAS AN APPOINTMENT ON SUNDAY WITH DR. NAQVI AT [facility], AND WAS ADVISED HE PLANS TO REDUCE THE PATIENT'S MEDICATION. PATIENT DENIES UNEXPLAINABLE WEIGHT LOSS, FEVER, CHILLS, NEW CHANGES ON HIS URINARY OR BOWEL CONTROL. FALL RISK SCREENING: SCREENING :NO FALLS REPORTED IN THE LAST YEAR CURRENT MEDICATIONS TAKING LEVOTHYROXINE SODIUM 125 MCG TABLET 1 TABLET ORALLY ONCE A DAY TAKING DULOXETINE HCL 30 MG CAPSULE DELAYED RELEASE PARTICLES 1 CAPSULE DAILY ORALLY WITH FOOD DIRECTED TAKING HYDROMORPHONE HCL 8 MG TABLET DIRECTED ORALLY FOR PAIN EVERY 4 HOURS NEEDED MDD5 NOT-TAKING OXYCODONE HCL 15 MG TABLET 1 TABLET ORALLY FOR PAIN EVERY 4 HRS MDD6 NOT-TAKING CYCLOBENZAPRINE HCL 10 MG TABLET 1 TABLET NEEDED ORALLY THREE TIMES A DAY NOT-TAKING HYDROMORPHONE HCL 4 MG TABLET DIRECTED ORALLY DIRECTED, NOTES: 4MG TABS TAKE ONE TAB DAILY X 10 DAYS THEN NOT-TAKING HYDROMORPHONE HCL 2 MG TABLET DIRECTED ORALLY DIRECTED, NOTES: 2MG TABS TAKE ONE TABLET DAILY X 10 DAYS THEN NOT-TAKING HYDROMORPHONE HCL 2 MG TABLET DIRECTED ORALLY DIRECTED, NOTES: 2MG TABLETS TAKE 1/2 TABLET DAILY X 10 DAYS THEN STOP NOT-TAKING CLONIDINE HCL 0.1 MG TABLET 1 TABLET BID PRN ORALLY BID PRN FOR WITHDRAWL SYMPTOMS MDD=2 MEDICATION LIST REVIEWED AND RECONCILED WITH THE PATIENT PAST MEDICAL HISTORY HYPOTHYROIDISM,DISC DISEASE LOW BACK 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 FATHER - RENAL FAILURE. SOCIAL HISTORY GENERAL: TOBACCO USE ARE YOU A:CURRENT SMOKER ARE YOU INTERESTED IN QUITTING?THINKING ABOUT QUITTING CUTTING DOWN, SOMEDAYS ARE BETTER THAN OTHERS, HAS TRIED THE PATCH AND CHANTIX. PREVIOUS QUIT ATTEMPTS?YES, WITHIN THE LAST 6 MONTHS. COUNSELED THE PATIENT ON SMOKING CESSATION, EDUCATION [id number] HOW OFTEN DO YOU SMOKE CIGARETTES?EVERY DAY PATIENT COUNSELED ON THE DANGERS OF TOBACCO USE AND URGED TO QUIT:10/24/2018 OTHERS AT HOME: SPOUSE. DIET: REGULAR. LANGUAGE LANGUAGES SPOKEN:PRYDEINIG NEW PATIENT PAIN DIARY TODAY'S VISITNOTES FROM 0-10, WHAT LEVEL IS YOUR PAIN TODAY?6 RECREATIONAL DRUG USE DRUG USE?YES MARIJUANA, OCCASSIONALLY EXERCISE: WALKS. LEARNING BARRIERS / SPECIAL NEEDS ORIENTED TO PLAN OF CARE: PATIENT, PAIN MANAGEMENT PATIENT, ORIENTED TO PLAN OF CARE: PATIENT, PAIN MANAGEMENT PATIENT. PAIN CLINIC PFS, CLERGY, PUBLIC HEALTH REFERRALS WAS THE PROVIDER NOTIFIED OF ANY PERTINENT INFO?YES HAS THE PATIENT BEEN EDUCATED REGARDING HIS/HER PLAN OF CARE?YES HAS THE PATIENT BEEN EDUCATED REGARDING PAIN, THE RISK FOR PAIN, THE IMPORTANCE OF EFFECTIVE PAIN MANAGEMENT, AND THE PAIN ASSESSMENT PROCESS?YES LATEX QUESTIONNAIRE LATEX ALLERGY : HAVE YOU EVER DEVELOPED ANY TYPE OF REACTION AFTER HANDLING LATEX PRODUCTS SUCH RUBBER GLOVES, CONDOMS, DIAPHRAGMS, BALLOONS, SOCKS, OR UNDERWEAR?NO LATEX ALLERGY : HAVE YOU EVER DEVELOPED ANY TYPE OF REACTION DURING OR AFTER DENTAL APPOINTMENT, VAGINAL/RECTAL EXAMINATION, SURGICAL PROCEDURE, OR ANY OTHER EXPOSURE?NO DATE ASKED : 06/07/2018 LATEX RISK : HAVE YOU EVER HAD ANY DIFFICULTY BREATHING OR HIVES AFTER EATING OR HANDLING ANY FRUITS, OR VEGETABLES; SUCH KIWI, BANANAS, STONE FRUITS, OR CHESTNUTSNO LATEX RISK : DO YOU HAVE A PREVIOUS PERSONAL HISTORY OF MORE THAN NINE SURGERIES, SPINA BIFIDA, OR REPEATED CATHERIZATIONS? NO LATEX RISK : ARE YOU FREQUENTLY EXPOSED TO LATEX PRODUCTS IN YOUR OCCUPATION?NO CAFFEINE CAFFEINE USE?YES 1 CUP OF COFFEE AND 4 PEPSIS PER DAY ADVANCE DIRECTIVE ADVANCE DIRECTIVE DISCUSSED WITH PATIENT:YES HCP - HERBERT DELGADO HOAHAOISM [id number] NONE NO [employer] BELIEFS THAT WOULD IMPACT HEALTH CARE. MARITAL STATUS: . OCCUPATION: DISABLED. REVIEWED WITH PATIENT 03/05/18 0912 JSREVIEWED WITH PT 07/22/18 1515 BVREVIEWED WITH PATIENT 08/06/18 0850 JSREVIEWED WITH PT 08/23/18 1505 BVREVIEWED WITH PT 10/24/18 1551 BV. HOSPITALIZATION/MAJOR DIAGNOSTIC PROCEDURE SURG RELATED REVIEW OF SYSTEMS REVIEWED BY: PROVIDER: PRITI CROSS MD . CONSTITUTIONAL: ANY CHANGE IN YOUR MEDICAL CONDITION? NO . CHILLS NO . FEVER NO . INFECTION: DO YOU HAVE NEW INFECTIONS? NO . DO YOU HAVE HISTORY OF MRSA? NO . MUSCULOSKELETAL: ANY NEW PATTERNS OF PAIN OR NUMBNESS? NO . GASTROENTEROLOGY: ANY NEW CHANGE IN BOWEL CONTROL? NO . GENITOURINARY: ANY NEW CHANGE IN BLADDER CONTROL? NO . IS THERE A CHANCE YOU COULD BE ? NO . HEMATOLOGY/LYMPH: DO YOU TAKE ANY BLOOD THINNERS? (FOR EXAMPLE- COUMADIN, PLAVIX, AGGRENOX, PLATEL, PRADAXA, OR XARELTO) NO . WHEN WAS YOUR LAST DOSE? DATE: TIME: . NEUROLOGY: HAVE YOU FALLEN IN THE PAST 12 MONTHS? NO . ANY NEW EXTREMITY NUMBNESS OR WEAKNESS? NO . CARDIOLOGY: DO YOU HAVE A PACEMAKER OR DEFIBRILLATOR? NO . RESPIRATORY: HAVE YOU BEEN SICK IN THE PAST WEEK? NO . FEVER NO . FLU LIKE SYMPTOMS? NO . COUGH NO . INTEGUMENTARY: DO YOU HAVE ANY RASHES OR OPEN SORES? NO . ALLERGIC/IMMUNO: ARE YOU ALLERGIC TO IV DYE? NO . ANY NEW ALLERGIES? NO . PSYCHIATRIC: DO YOU HAVE THOUGHTS OF HURTING YOURSELF OR SOMEONE ELSE? NO . ARE YOU ABUSED, NEGLECTED, OR IN AN UNSAFE ENVIRONMENT? NO . ENDOCRINOLOGY: ARE YOU DIABETIC? NO . OTHER: DO YOU NEED ANY PRESCRIPTIONS? CYMBALTA . IF YES, PLEASE LIST: ____ . ANY NEW PROBLEMS WITH YOUR MEDICATIONS? NO . WHEN DID YOU LAST EAT? ____ . WHEN DID YOU LAST DRINK? ____ . WHAT DID YOU LAST DRINK? ____ . NAME OF PERSON DRIVING YOU HOME? ____ . DO YOU HAVE ANY OTHER QUESTIONS OR CONCERNS YES, PT WOULD LIKE TO GET OFF HYDROMORPHONE AND PUT ON SOMETHING ELSE. . VITAL SIGNS WT 224 LBS, HT 68 IN, BMI 34.06 INDEX, BP 133/81 MM HG, HR 65 /MIN, RR 18 /MIN, TEMP 96.1 F, OXYGEN SAT % 99%, NA INITIALS SC 15:39, REVIEWED BY: BV. EXAMINATION GENERAL EXAMINATION: PATIENT IS ALERT O X 3 AND COOPERATIVE. TENDERNESS IN THE CERVICAL, THORACIC AREA ESPECIALLY ON THE RIGHT SIDE, AND IN THE LOWER BACK. MRI OF THE CERVICAL SPINE DONE ON 01/09/2017 SHOWS DISC EXTRUSION AT C5-C6. LEFT ARM IS WEAKER AT EXTENSION AND FLEXION. LEFT HAND SALES ASSOCIATE IS REDUCED COMPARED WITH THE RIGHT SIDE. ASSESSMENTS CERVICAL PAIN - M54.2 (PRIMARY) CERVICAL DISC DISORDER WITH RADICULOPATHY OF CERVICAL REGION - M50.10 CERVICALGIA - M54.2 LUMBAR POST-LAMINECTOMY SYNDROME - M96.1 TREATMENT CERVICAL PAIN CLINICAL NOTES: WE DISCUSSED SEVERAL OPTIONS WITH MR. DELGADO'S PAIN MANAGEMENT CASE. I WILL DISCONTINUE DILAUDID AND START PATIENT ON OXYCODONE 15 MG 4 TIMES A DAY WITH A WEANING DOWN SCHEDULE. PATIENT AWARE NOT TO TAKE MEDICATION WITH ALCOHOL OR MIX WITH OTHER SUBSTANCES. PATIENT WILL FOLLOW UP WITH DR NAQVI IN [place] FOR CONTINUING CARE. INSTRUCTIONS WERE GIVEN, QUESTIONS WERE ANSWERED, PATIENT REPORTS UNDERSTANDING AND AGREES WITH THE PLAN. I, DEBBIE MIR, DOCUMENTED THE ABOVE INFORMATION ACTING A SCRIBE FOR DR. CROSS. I HAVE REVIEWED THE ABOVE DOCUMENT, WRITTEN BY DEBBIE MOROCHO AND I VERIFY THAT IT IS ACCURATE.. OTHERS CONTINUE OXYCODONE HCL TABLET, 15 MG, 1 TABLET, ORALLY FOR PAIN, EVERY 6 HRS PRN MDD4, 15 DAYS, 60, REFILLS 0 PREVENTIVE MEDICINE PAIN CLINIC TEACHING: MEDITATION OXYCODONE DRUG INFORMATION SHEETS PRINTED AND REIEWED WITH PT 10/24/18 9904 [facility]. PROCEDURE CODES G8427 CURRENT MEDS W/DOSAGES DOCUMENTED G8730 PAIN ASSESS POS TOOL F/U PLAN DOC FA211 ESTABILISHED PATIENT [facility] CHARGE DISPOSITION & COMMUNICATION FOLLOW UP REASON: PT IS TRANSFERRING TO ANOTHER CLINIC ELECTRONICALLY SIGNED BY PRITI CROSS MD, ON 11/08/2018 AT 09:55 AM EDT DISCLAIMER : THIS IS A VISIT SUMMARY EXTRACTED FROM THE [employer] CHART. IT IS NOT A COPY OF THE [employer] PROGRESS NOTE. MTDD
== END ==
LOC: M PAIN 15:30
PROVIDERS: ATTEND Anesthesiology
DX: M50.10 Cervical disc disorder with radiculopathy, unspecified cervical region (principal); M96.1 Postlaminectomy syndrome, not elsewhere classified; E03.9 Hypothyroidism, unspecified; F17.210 Nicotine dependence, cigarettes, uncomplicated; Z88.5 Allergy status to narcotic agent; Z88.8 Allergy status to other drugs, medicaments and biological substances; Z79.899 Other long term (current) drug therapy

== ENCOUNTER → 2020-12-13 | Outpatient (CLI) | payer MEDICARE ==
--- NOTE | 2020-12-13 10:32 | REP ---
INDICATION: ATRAUMATIC CERVICALGIA/LT SHOULDER PAIN. COMPARISON: None. TECHNIQUE: AP, lateral, and swimmer's view FINDINGS: There is a mild dextroconvex cervical curve. The disc spaces appear symmetric and relatively well maintained throughout on this limited exam. Vertebral body height and alignment is within normal limits. IMPRESSION: Mild dextroconvex cervical curve possibly secondary to muscular spasm. <Electronically signed by Ivan Dey > 12/13/20 1026
--- NOTE | 2020-12-13 10:33 | REP ---
INDICATION: CERVICALGIA/ LT SHOULDER PAIN. COMPARISON: None. TECHNIQUE: Single AP view with scapular Y-view FINDINGS: The exam is limited. There is no gross abnormality. IMPRESSION: Limited exam within normal limits. Only 1 AP view was obtained. <Electronically signed by Ivan Dey > 12/13/20 1020
== END ==
LOC: M SOG 08:59
PROVIDERS: ATTEND Orthopaedic Surgery
DX: M54.2 Cervicalgia (principal); M25.512 Pain in left shoulder